=== PATIENT | female | born 1965 | race Caucasian/White ===

== ENCOUNTER 2018-06-09 00:57 | Outpatient (CLI) | payer BC, SELFPAY ==
--- NOTE | 2018-06-09 07:45 | DI.MAMMO_ITS ---
SYMPTOMS/DIAGNOSIS: SCREENING, Z12.31 MAMMOGRAM: Mammograms were interpreted according to the usual protocol including computer analysis with CAD system, tomosynthesis and C view imaging. The breast tissue is heterogeneously radiodense which lowers the sensitivity of the study. There is no dominant mass. There are no suspicious calcifications and there has been no significant interval change when compared with prior images. SUMMARY: No evidence of malignancy, Category I, yearly screening mammography is recommended. Breast density Category C. MQSA ASSESSMENT OF FINDINGS: Negative. Category 1. Patient will receive a letter notifying them of these results. Bi-RADS category C. The breasts are heterogeneously dense, which may obscure small masses.
[2018-06-09 09:36] LABS: Cholesterol 173 mg/dL (50-200); Glucose 83 mg/dL (70-100); HDL Cholesterol 84 mg/dL (40-60); LDL CHOLESTEROL 78 mg/dL (<100); Triglyceride 50 mg/dL (30-150)
== END 2018-06-09 01:17 ==
PROVIDERS: PCP Emergency Medicine; Visit Provider Nurse Practitioner Women's Health
DX: Z12.31 Encounter for screening mammogram for malignant neoplasm of breast (principal); Z13.228 Encounter for screening for other metabolic disorders; Z13.1 Encounter for screening for diabetes mellitus; Z13.220 Encounter for screening for lipoid disorders; Z01.419 Encounter for gynecological examination (general) (routine) without abnormal findings
CPT/HCPCS: 36415; 77063; 77067; 80061; 82947; 83721

== ENCOUNTER 2019-06-15 02:14 | Outpatient (CLI) | payer BC, SELFPAY ==
--- NOTE | 2019-06-15 12:05 | DI.MAMMO_ITS ---
EXAM: MAMMO SCREENING CLINICAL HISTORY: SCREENING Z12.31 TECHNIQUE: Mammograms were interpreted according to the usual protocol including computer analysis w [employer] CAD system, tomosynthesis and C-view imaging. COMPARISON: FINDINGS: The breasts are heterogeneously dense. No dominant mass or clumped microcalcification is identified in either breast. Current examination is compared with previous examinations including May 2018 and there has been no gross interval change in appearance in comparison with the previous studies. IMPRESSION: Conclusion no specific evidence of malignancy at this time. Routine screening examinations are sugges lon at yearly intervals due to the family history of breast carcinoma. Category 1 breast density category C
== END 2019-06-15 02:34 ==
PROVIDERS: PCP Emergency Medicine; Visit Provider Nurse Practitioner Women's Health
DX: Z12.31 Encounter for screening mammogram for malignant neoplasm of breast (principal); Z80.3 Family history of malignant neoplasm of breast
CPT/HCPCS: 77063; 77067

== ENCOUNTER 2020-08-06 01:17 | Outpatient (CLI) | payer BC, SELFPAY ==
--- NOTE | 2020-08-06 12:36 | DI.MAMMO_ITS ---
EXAM: MAMMO SCREENING CLINICAL HISTORY: SCREENING, Z12.31 TECHNIQUE: Mammograms were interpreted according to the usual protocol including computer analysis w [employer] CAD system, tomosynthesis and C-view imaging. COMPARISON: 2013 through 2019 FINDINGS: The breasts are composed of heterogeneously dense fibroglandular densities, Breast Density category C . No suspicious masses or suspicious microcalcifications are seen. No skin thickening or abnormal axillary lymph nodes are seen. There has been no significant change from prior exams. IMPRESSION: BI-RADS Category 1, Negative mammogram. Yearly screening mammography is recommended. Breast Density Category C, heterogeneously Dense. The mammogram demonstrates the patient's breast tissue is dense. Dense breast tissue is very common a nd is not abnormal but dense breast tissue can make it harder to find cancer on a mammogram. Also, de nse breast tissue may increase breast cancer risk. This information about the result of the mammogram report was provided to the patient to raise their awareness. Use this report when you speak with the patient about their risks for breast cancer, which includes their family history. At that time, you may recommend additional screening tests (Ultrasound or MRI) as they might be useful based on their r isk. A negative radiographic report should not delay biopsy if a dominant or clinically suspicious mass is present. Up to ten percent of cancers are not identified on mammography. A negative report may reinforce clinical impression. Adenosis and dense breasts may obscure an underlying neoplasm. False positive reports average 6 to 10%.
== END 2020-08-06 01:18 ==
LOC: DI 01:17
PROVIDERS: PCP Nurse Practitioner Family; Visit Provider Obstetrics & Gynecology
DX: Z12.31 Encounter for screening mammogram for malignant neoplasm of breast (principal)
CPT/HCPCS: 77063; 77067

== ENCOUNTER 2021-08-26 00:21 | Outpatient (CLI) | payer BC, SELFPAY ==
--- NOTE | 2021-08-26 17:00 | DI.MAMMO_ITS ---
Exam(s) MAMMO SCREENING EXAM: MAMMO SCREENING CLINICAL HISTORY: SCREENING, Z12.31; FAMILY H/O MALIGNANT NEOPLASM OF BREAST, Z80.3. TECHNIQUE: Bilateral full field digital CC and MLO mammographic images were obtained with 3D tomosyn thesis and utilizing computer aided detection (CAD). COMPARISON: Prior mammograms were reviewed, the most recent being July 2020. FINDINGS: Fibroglandular tissue is moderately dense, this somewhat decreasing the sensitivity mammogram for fin ding in underlying lesions. There are no new significant radiographic findings in left breast. In the upper outer quadrant right breast there is an asymmetric density evident measuring approximate ly 8 x 7 millimeters and located approximately 6 cm in from the nipple on the MLO and CC views. There are no malignant-appearing microcalcification groups is region or elsewhere in either breast. There is no significant architectural distortion nor skin thickening-retraction. IMPRESSION: Dense bilateral fibroglandular tissue. No obvious radiographic evidence of malignancy in left breast . Asymmetric density-possible nodule in the upper outer quadrant of the right breast. Spot compression view and ultrasound recommended. BI-RADS Category 0 - Assessment Incomplete: Need additional imaging evaluation Breast Density - Category C - Heterogeneously dense Breast density Category C or D implies that the patient has dense breast tissue. Dense breast tissue can make it harder to find cancer on a mammogram. Dense breast tissue is also associated with an incr eased risk of breast cancer. This information about the result of the mammogram report was provided to the patient to raise their awareness. Use this report when you speak with the patient about their risks for breast cancer, which includes their family history. At that time, you may recommend additional screening tests (Ultrasoun d or MRI) as these tests may add significant information. A negative radiographic report should not delay biopsy if a dominant or clinically suspicious mass is present. Up to ten percent of cancers are not identified on mammography. A negative report may reinforce clinical impression. Adenosis and dense breasts may obscure an underlying neoplasm. False positive reports average 6 to 10%. Patient will receive a letter notifying them of these results.
== END 2021-08-26 00:41 ==
PROVIDERS: PCP Nurse Practitioner Family; Visit Provider Nurse Practitioner Women's Health
DX: Z12.31 Encounter for screening mammogram for malignant neoplasm of breast (principal); R92.8 Other abnormal and inconclusive findings on diagnostic imaging of breast
CPT/HCPCS: 77063; 77067

== ENCOUNTER 2021-09-10 01:55 | Outpatient (CLI) | payer BC, SELFPAY ==
--- NOTE | 2021-09-10 13:30 | DI.MAMMO_ITS ---
Exam(s) MG MAMMO SCREEN CALL BACK UNI US BREAST RT COMPLETE EXAM: US BREAST RT COMPLETE CLINICAL HISTORY: ASYMMETRIC DENSITY 8 X 7 MM 6 CM FROM NIPPLE RT BREAST TECHNIQUE: Ultrasound performed using standard protocol. COMPARISON: No exams were available for comparison FINDINGS: Additional mammographic views of the right breast and right breast ultrasound are interpreted in conj unction. These examinations were obtained to evaluate an area of asymmetric density of the right hannah ast seen on recent mammogram. Additional mammographic views fail to show a discrete mass. Breast ul trasound shows number of small hypoechoic well-circumscribed nodules of the breast, the largest about 6 millimeters in diameter in the 10 o'clock position in the breast. No significant internal vascula rity. Findings are consistent with benign disease. Malignancy not absolutely excluded and a follow- up unilateral right breast mammogram and right breast ultrasound are requested in 6 months. IMPRESSION: No specific evidence of malignancy. Follow-up unilateral right breast mammogram and right breast ult rasound requested in 6 months as described above. BI-RADS Cat 3 - 6 month - Probably Benign Finding: Recommend follow-up imaging in 6 months Breast Density - Category C - Heterogeneously dense DATA REPOSITORY:
== END 2021-09-10 02:15 ==
PROVIDERS: PCP Nurse Practitioner Family; Visit Provider Nurse Practitioner Women's Health
DX: R92.8 Other abnormal and inconclusive findings on diagnostic imaging of breast (principal)
CPT/HCPCS: 76642; 77063; 77067

== ENCOUNTER → 2022-03-17 01:12 | Outpatient (CLI) | payer BC, SELFPAY ==
--- NOTE | 2022-03-17 | DI.US_ITS ---
Exam(s) MG MAMMO DIAGNOSTIC UNI US BREAST RT LIMITED EXAM: MG MAMMO DIAGNOSTIC UNI-RIGHT AND COMPLETE RIGHT BREAST ULTRASOUND CLINICAL HISTORY: 6-MO F/U RT BREAST MAMMO. TECHNIQUE: Both CC and MLO views of the right breast were performed as well as additional CC and MLO spot mammographic images were obtained with 3D tomosynthesis technique and utilizing computer aided detection (CAD). Complete right breast ultrasound was performed including all 4 quadrants well as the axilla. COMPARISON: Prior mammograms were reviewed, the most recent being August 2021. Prior AUGUST 2021 ultr asound was also reviewed.. FINDINGS: DIAGNOSTIC RIGHT BREAST MAMMOGRAM: Fibroglandular tissue pattern is again noted be moderately dense, this somewhat decreasing the sensit ivity mammogram for finding hidden underlying lesions. On the right CC view there is a suggestion of a nodule laterally. This, however, the dissipates on a dditional spot compression view. Asymmetric densities seen on the mammogram in the right breast appe ar less concerning on the 3 additional spot mammographic views performed today. There are no new spi culated masses nor malignant-appearing microcalcification groups in the right breast and there is no new architectural distortion nor skin thickening-retraction. We proceeded with ultrasound. COMPLETE RIGHT BREAST ULTRASOUND: At the 12 o'clock position there is a 5 x 3 millimeter wider than taller unchanged finding which is u nchanged from the prior August 2021 study and is probably a hemorrhagic microcyst. The previously present finding at 4 o'clock position is again noted and has appearance of a 5 x 3 mil limeter microcyst. At the 6 o'clock position there is a 6 x 4 millimeter microcyst again noted. At the 9 o'clock position there is a wider than taller slightly lobulated 6 x 3 millimeter benign-miguelito earing nodule again noted, this correspond to what was previously described at 10 o'clock position. Scanning of the ipsilateral-right axilla is negative for significant adenopathy. IMPRESSION: 1. No radiographic evidence of malignancy in the right breast. The right breast tissue is again note d be moderately dense. 2. Stable appearance of the previously described multiple benign-appearing right breast findings on u ltrasound. These are all hidden subjacent to her moderately dense fibroglandular tissue on mammograp hy. Appropriate follow-up, as discussed by myself with the patient today, is to repeat the ultrasound exa mination at time for next yearly mammogram which would be in August 2022. Indeed at that time I would recommend ultrasound of BOTH breasts, given the density of her fibroglandular breast tissue plus th e fact that the right breast ultrasound findings are known to be hidden subjacent to this dense fibro glandular tissue. The patient was informed of the findings and follow-up recommendations prior to leaving the [facility] t today. BI-RADS Category 3 - 6 month - Probably Benign Finding: Recommend follow-up mammography in 6 months Breast Density - Category C - Heterogeneously dense Breast density Category C or D implies that the patient has dense breast tissue. Dense breast tissue can make it harder to find cancer on a mammogram. Dense breast tissue is also associated with an incr eased risk of breast cancer. This information about the result of the mammogram report was provided to the patient to raise their awareness. Use this report when you speak with the patient about their risks for breast cancer, which includes their family history. At that time, you may recommend additional screening tests (Ultrasoun d or MRI) as these tests may add significant information. A negative radiographic report should not delay biopsy if a dominant or clinically suspicious mass is present. Up to ten percent of cancers are not identified on mammography. A negative report may reinforce clinical impression. Adenosis and dense breasts may obscure an underlying neoplasm. False positive reports average 6 to 10%. Patient will receive a letter notifying them of these results.
== END ==
PROVIDERS: PCP Nurse Practitioner Family; Visit Provider Nurse Practitioner Women's Health
DX: R92.8 Other abnormal and inconclusive findings on diagnostic imaging of breast (principal)
CPT/HCPCS: 76642; 77061; 77065; G0279

== ENCOUNTER 2022-08-03 20:57 | Emergency (ER) | payer BC, SELFPAY ==
[2022-08-03 21:03] VITALS: BP 131/96; PULSE 71; RESP 22; TEMP 36.5; O2SAT 97
--- NOTE | 2022-08-03 21:08 | ED.GENADUL_ITS ---
Discharge Plan Disposition Patient Disposition: Home Condition: Good Discharge Details Clinical Impression: Face lacerations, Laceration of lip, Broken teeth, Loose, teeth Primary Care Provider: Galina Lowe ED Provider: Rebecca Noyola Home Meds and New Rx's Prescriptions: No Action dexamethasone 0.5 mg/5 mL solution 0.5 mg PO QID Rx Instructions: Advised to Dab on face QID. Discharge Instructions Instructions: Acute Dental Trauma (ED), Facial Laceration (ED) Additional Instructions: As we discussed, your imaging is reassuring with no evidence of significant fracture. However, I am concerned about your slightly loose upper teeth. Ple ase call dentist tomorrow to schedule follow-up. Please try to avoid any biting with your front teeth and eat soft foods. You may use Tylenol and ibuprofen as needed for discomfort. The outer laceration was closed with adhesive. Please do not pick or pull at this. Allow it to come off naturally. Do not apply any ointments over this as it may cause it to breakdown prematurely. Please monitor your lacerations for signs of infection including redness, warmth, drainage, increased pain, fever/ chills. If you develop these or other new/worsening symptom please seek care urgently once again. Regard to the inner laceration, please rinse with salt water to help prevent infection. This did not come through to the outer lip and does not require closure at this time. Again, please monitor for signs of infection. Please follow-up with your primary care in 1 week for reevaluation of your la cerations Referrals: Galina Lowe, MANUFACTURING DEVELOPMENT ENGINEER [Primary Care Provider] - Discharge Data Discharge Date/Time-TO BE ENTERED AT DEPARTURE: 08/03/22 23:07 Medical Decision Making Patient is a 57-year-old female, accompanied by , with chief complaint of facial trauma. She reports that prior to arrival she was drinking with some friends when she fell forward and struck a metal bar supporting a char that th ey were under. She denies any headache or loss of consciousness. Suffered laceration extending from the left naris into the left upper lip. Also had laceration more internally in the left upper lip. Fracture of the left front tooth. She denies radiation of pain or other injury at the time of the incident. has been with her, no abnormal movments, speech, no LOC, no N/V, visual changes. On exam, patient appears nontoxic. She does appear slightly inebriated. She is answering quesitons appropriately. She has a laceration over the left upper lip that is not a through and through. Appears fairly supeerficial. Surrounding this, the patient has abrasions and some swelling. She also has a fractured front tooth. No pain with this, nerve is not exposed. She lost the piece of broken piece. She has small abrasion to the upper lip, centrally and inferiorly. Again, not a through and through, appears superficial and like something that will heal natrually. She is able to bite/break tongue depressor on both sides. No other loose/painful teeth. No evidence of maxillary fracture. No midline neck pain, full ROM, no step off or deformity. Neuro exam is intact. Patient and I discussed her wounds. I am concerned, particularly as she has had some ETOH, that she may have distracting injury and feel that imaging is appropriate. Discussed with patient who is in agreement. Also spoke with patient privately, she assures that she is safe at home and reiterates that this was a trip/fall when out with friends FINDINGS: Orbital cavities: Orbits are normal. Globes are unremarkable. Bones/joints: No acute fracture. Paranasal sinuses: Normal. No air-fluid levels. Soft tissues:? 2 mm fragment versus radiopaque foreign body over the left mandibular lateral incisor tooth IMPRESSION: Osseous fragment versus radiopaque foreign body overlying the left mandibular lateral incisor tooth. Clinical correlation recommended Discussed with patient. the small fragment of tooth was able to be found and is the fragment noted. She, her and I discussed options for her laceration. It is fairly linear and superficial. Wound edges come together easily and ammend themselves to adhesive closure. We discussed risks/benefits, alternatives and expected procedural steps. She voices understanding and wishes to proceed. j Wound was cared to using standard, sterile technique. Copiously irrigated and explored to base in bloodless field. Small, folded, superficial skin piece removed. Wound edges reappoximated well without tension, thin layer of adhesive applied. Also cleansed the inner laceration that does not require closure. Discussed wound care in depth, both for the exterior laceration as well as her lip wound and abrasions. She has a dentist and will f/u tomorrow. Return pre cautions discussed. We discussed ETOH. She will deepika nthe care of her . Tetanus updated. All of her questions and concerns were addressed, she is in agreement with this plan. HPI General Date/Time Provider Initiated Documentation: 08/03/22 21:08 . Limitations to Documentation: no limitations . Information obtained by: patient, family and RN notes reviewed . History of Present Illness 57 year old F presents to the emergency department with the chief complaint of facial trauma, described as moderate, Quality is described as aching, and is localized to the face and mouth. Patient reports no radiation. Patient started experiencing this minute(s) and it has been constant. Immobilization improves symptom(s), Movement worsens symptoms . Patient notes no other symptoms.. Patient did receive the following treatments prior to arrival, none Related Data Home Medications Medication Instructions Recorded Confirmed dexamethasone 0.5 mg/5 mL oral 0.5 mg PO QID 08/06/22 08/07/22 solution Allergies Allergy/AdvReac Type Severity Reaction Status Date / Time No Known Allergies Allergy Verified 08/06/22 11:14 General Stated Complaint: Laceration ZEUS: 4 Review of Systems Constitutional Constitutional: Reports as per HPI, Denies chills, Denies fatigue, Denies fever(s), Denies headache(s) and Denies weakness Eyes Eyes: Reports as per HPI and Denies change in vision ENT Ears, Nose, Mouth, and Throat: Denies headache(s) Cardiovascular Cardiovascular: Reports as per HPI and Denies chest pain Respiratory Respiratory: Reports as per HPI and Denies pain on inspiration Gastrointestinal Gastrointestinal: Reports as per HPI, Denies nausea and Denies vomiting Musculoskeletal Musculoskeletal: Reports as per HPI Integumentary/Breasts Skin/Breast: Reports as per HPI Neurologic Neurologic: Reports as per HPI, Denies headache(s), Denies localized weakness and Denies weakness Endocrine Endocrine: Denies fatigue PFSH All Active Problems (Updated 08/03/22 @ 22:41 by AISHWARYA Solorzano) Face lacerations (Acute) Laceration of lip (Acute) Broken teeth (Acute) Loose, teeth (Acute) 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 Father Personal history of malignant neoplasm bladder Sister No problems noted. Brother Heart disease Grandfather No problems noted. Grandfather Heart disease Grandmother No problems noted. Grandmother No problems noted. 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 linear laceration. This is not a through and through. Superficial wound. Surrounding tissue is swollen, some redness. Small abrasion extends laterarlly away from this. Mouth: oral mucosae normal, lip normal and tongue normal Throat: posterior oropharynx normal Eyes General: appearance normal, both eyes and all related structures Visual Bangura: normal visual bangura by confrontation Alignment and Position: alignment normal Periorbital: periorbital findings normal Eyelids: eyelids normal Conjunctivae: conjunctivae normal Pupils: PERRL EOM: EOM intact bilaterally Neck Neck: normal visual inspection, full ROM, no lymphadenopathy, no meningeal signs, trachea midline and supple Chest Chest: normal inspection of the chest, normal palpation of entire chest wall, no crepitus and no localized rib tenderness Resp Effort & Inspection: normal respiratory effort, able to speak in complete sentences and no respiratory distress Auscultation: clear to auscultation bilaterally, no rales, no rhonchi and no wheezes Cardio Rate: regular rate Rhythm: regular rhythm Heart Sounds: S1 normal and S2 normal GI Inspection: normal to inspection, no abdominal wall ecchymosis, no edema and non-distended Palpation: soft, no hepatosplenomegaly, not firm, no guarding, no pulsatile masses, not rigid and nontender Auscultation: normal bowel sounds Back/Spine/Pelvis Back: no CVA tenderness Cervical Spine: normal cervical lordosis and cervical ROM normal Thoracic/Lumbar Spine: thoracic and lumbar spine normal to inspection, thoraco-lumbar ROM normal, No thoraco-lumbar ROM limited, No thoraco-lumbar spasm and No thoracic spinal tenderness Pelvis: no pain with anterior-posterior compression and no pain with lateral compression Skin General skin exam: no rashes or lesions noted Lesions: no lesions Rashes: no rashes Trauma: no lacerations or abrasions Wounds: no wounds Neuro General: patient alert, patient awake, patient oriented x3, gait normal, tone normal and moves all extremities Cranial Nerves: CN's II-XI intact bilaterally Cognition: normal cognition Speech: speech normal Gait: normal gait Motor: muscle tone normal throughout and strength 5/5 throughout Sensory Exam: no sensory deficits noted (no saddle paresthesias) Extrem General: normal to inspection, full ROM, capillary refill normal, no pedal edema and no calf tenderness Psych Appearance: grossly normal and well kempt Mental Status: mental status grossly normal Speech and Movement: speech and movement normal Course Vital Signs Vital signs: Vital Signs Temperature 36.5 C 08/03/22 21:03 Pulse 71 08/03/22 21:03 Respiratory Rate 22 08/03/22 21:03 Blood Pressure 131/96 H 08/03/22 21:03 Pulse Oximetry 97 08/03/22 21:03 Temperature 36.5 C 08/03/22 21:03 Temperature Source Oral 08/03/22 21:03 Pulse 71 08/03/22 21:03 Respiratory Rate 22 08/03/22 21:03 Blood Pressure 131/96 H 08/03/22 21:03 Blood Pressure Position Sitting 08/03/22 21:03 Pulse Oximetry 97 08/03/22 21:03
--- NOTE | 2022-08-03 21:15 | DI.CT_ITS ---
Exam(s) CT FACIAL WO EXAM: CT FACIAL WO CLINICAL HISTORY: fell on face, upper lip lac, fx tooth. TECHNIQUE: Imaging Protocol: Axial computed tomography images with coronal and sagittal reformatted images were created and reviewed COMPARISON: No exams were available for comparison FINDINGS: CT Face: Facial Bones: No definite fracture is noted in facial bones. Sinuses and Mastoids: Unremarkable. Globes, extraocular muscles, optic nerves and retrobulbar fat: Normal. Upper aerodigestive tract: Normal. Mandible and bilateral temporomandibular joints: Normal. Soft tissues: There is a 2 mm density adjacent to the left mandibular lateral incisor tooth. This ma y represent a fracture fragment versus of radiopaque foreign body. IMPRESSION: 2 mm density adjacent to the left mandibular lateral incisor which may represent an osseous fragment versus a radiopaque foreign body. Please correlate clinically. RADIATION DOSE DELIVERED: 356.82mGy.cm Total DLP 356.82mGy.cm Total DLP DATA REPOSITORY: All CT scans at this facility are submitted to the National Radiology Data Registry (NRDR) Dose Index Registry (DIR) with the [employer] (A[employer]). RADIATION OPTIMIZATION: All CT scans at this facility use at least one of these dose optimization te chniques: automated exposure control; mA and/or kV adjustment per patient size (includes targeted exa ms where dose is matched to clinical indication); or iterative reconstruction.
[2022-08-03] MEDS: Acetaminophen 325 MG TAB 650 MG PO (21:31)
--- NOTE | 2022-08-03 22:10 | DI.VRAD_ITS ---
PROCEDURE INFORMATION: Exam: CT Maxillofacial Without Contrast Exam date and time: 08/03/2022 9:39 PM Age: 57 years old Clinical indication: Other: Fell on face, upper lip lac, FX tooth TECHNIQUE: Imaging protocol: Computed tomography of the face without contrast. Radiation optimization: All CT scans at this facility use at least one of these dose optimization techniques: automated exposure control; mA and/or kV adjustment per patient size (includes targeted exams where dose is matched to clinical indication); or iterative reconstruction. COMPARISON: No relevant prior studies available. FINDINGS: Orbital cavities: Orbits are normal. Globes are unremarkable. Bones/joints: No acute fracture. Paranasal sinuses: Normal. No air-fluid levels. Soft tissues: 2 mm fragment versus radiopaque foreign body over the left mandibular lateral incisor tooth IMPRESSION: Osseous fragment versus radiopaque foreign body overlying the left mandibular lateral incisor tooth. Clinical correlation recommended No acute orbital or mandibular fracture Dictated and Authenticated by: Sebastian Sanon MD. Ordering:JAQUELINE Fernandez MD
[2022-08-03 23:06] VITALS: BP 128/80; PULSE 70; RESP 16; O2SAT 98
== END 2022-08-03 23:07 | disposition home or self-care (01) ==
PROVIDERS: Emergency Provider Physician Assistant; PCP Nurse Practitioner Family
DX: S02.5XXA Fracture of tooth (traumatic), initial encounter for closed fracture (principal); S01.511A Laceration without foreign body of lip, initial encounter; J45.909 Unspecified asthma, uncomplicated; Z23 Encounter for immunization; W19.XXXA Unspecified fall, initial encounter; W22.09XA Striking against other stationary object, initial encounter
CPT/HCPCS: 90471; 99284; 70486; 99282

== ENCOUNTER 2022-09-15 01:26 | Outpatient (CLI) | payer BC, SELFPAY ==
--- NOTE | 2022-09-15 14:30 | DI.US_ITS ---
Exam(s) US BREAST RT COMPLETE MG MAMMO DIAGNOSTIC BI EXAM: MG MAMMO DIAGNOSTIC BI CLINICAL HISTORY: RT BREAST ASYMMETRY, ABNL AND INCONCLUSIVE FINDINGS OF DI OF BREAST, R92.8. COMPARISON: MG MG MAMMO SCREENING from 08/26/2021 MG MG MAMMO SCREEN CALL BACK UNI from 09/10/2021 US US BREAST RT LIMITED from 03/17/2022 US US BREAST RT COMPLETE from 09/15/2022 TECHNIQUE: Craniocaudal and mediolateral oblique Full Field Digital Mammography views of both breast s with Computer Aided Diagnosis followed by Tomosynthesis and right breast ultrasound. FINDINGS: Mammography/Tomosynthesis: Masses/Architectural Distortion: None seen. Microcalcifications: No suspicious pleomorphic-type are seen. Skin Thickening/Nipple Retraction: None. Right breast US: Echotexture: Normal appearance of the glandular tissue. Shadowing: No suspicious foci. Cyst: 3 millimeters cyst 12 o'clock position 1 cm from the nipple. The prior exam showed several add itional cysts which are not seen on the current exam. Solid lesions: None seen. Ductal dilation: None. IMPRESSION: 1. No evidence of malignancy is noted. 2. Unless there is more urgent need, follow-up screening mammography is recommended, as per [place] [employer] guidelines. BI-RADS Category 2 - Benign Findings Breast Density - Category C - Heterogeneously dense Breast density category C or D implies that the patient has dense breast tissue. Dense breast tissue is very common and is not abnormal but dense breast tissue can make it harder to find cancer on a ma mmogram. Also, dense breast tissue may increase their breast cancer risk. This information about the result of the mammogram report was provided to the patient to raise their awareness. Use this report when you speak with the patient about their risks for breast cancer, which includes their family hist ory. At that time, you may recommend for more screening tests (Ultrasound or MRI) as they might be us eful based on their risk. A negative radiographic report should not delay biopsy if a dominant or clinically suspicious mass is present. Up to ten percent of cancers are not identified on mammography. A negative report may reinforce clinical impression. Adenosis and dense breasts may obscure an underlying neoplasm. False positive reports average 6 to 10%. Patient will receive a letter notifying them of these results.
== END 2022-09-15 01:46 ==
LOC: DI 01:26
PROVIDERS: PCP Nurse Practitioner Family; Visit Provider Nurse Practitioner Women's Health
DX: R92.8 Other abnormal and inconclusive findings on diagnostic imaging of breast (principal); N60.01 Solitary cyst of right breast
CPT/HCPCS: 76642; 77062; 77066; G0279

== ENCOUNTER → 2023-10-05 03:00 | Outpatient (CLI) | payer BC, SELFPAY ==
--- NOTE | 2023-10-05 | DI.MAMMO_ITS ---
Exam(s) MAMMO SCREENING EXAM: MAMMO SCREENING CLINICAL HISTORY: Z12.31 Screening mammogram for malignant neoplasm of breast. TECHNIQUE: Bilateral full field digital CC and MLO mammographic images were obtained with 3D tomosyn thesis and utilizing computer aided detection (CAD). COMPARISON: Prior mammograms were reviewed. FINDINGS: The fibroglandular tissue pattern is again noted be moderately dense, and indeed there are numerous f indings in the breasts seen on prior ultrasound examinations which have been known to be hidden subja cent to her dense fibroglandular tissue on 3D mammography. Asymmetric density in the left breast seen on the MLO view appears relatively stable. There are no obvious new spiculated masses nor malignant appearing microcalcification groups. A few benign-appearing microcalcifications in the right breast are again noted. There is no significant architectural distortion nor skin thickening-retraction. IMPRESSION: Moderately dense fibroglandular tissue. No obvious radiographic evidence of malignancy. Given the density of this patient's fibroglandular tissue and findings on prior ultrasound examinatio ns which are known to be hidden subjacent to her dense fibroglandular tissue, I recommend repeat bila teral breast ultrasound exam at this time. BI-RADS Category 0 - Assessment Incomplete: Need additional imaging evaluation Breast Density - Category C - Heterogeneously dense Breast density Category C or D implies that the patient has dense breast tissue. Dense breast tissue can make it harder to find cancer on a mammogram. Dense breast tissue is also associated with an incr eased risk of breast cancer. This information about the result of the mammogram report was provided to the patient to raise their awareness. Use this report when you speak with the patient about their risks for breast cancer, which includes their family history. At that time, you may recommend additional screening tests (Ultrasoun d or MRI) as these tests may add significant information. A negative radiographic report should not delay biopsy if a dominant or clinically suspicious mass is present. Up to ten percent of cancers are not identified on mammography. A negative report may reinforce clinical impression. Adenosis and dense breasts may obscure an underlying neoplasm. False positive reports average 6 to 10%. Patient will receive a letter notifying them of these results.
== END ==
PROVIDERS: PCP Nurse Practitioner Family; Visit Provider Nurse Practitioner Women's Health
DX: Z12.31 Encounter for screening mammogram for malignant neoplasm of breast (principal); R92.323 Mammographic fibroglandular density, bilateral breasts
CPT/HCPCS: 77063; 77067

== ENCOUNTER 2024-02-19 22:06 | Emergency (ER) | payer BC, SELFPAY ==
[2024-02-19] VITALS (13 sets, daily range): BP systolic 91–110; BP diastolic 41–70; PULSE 77–89; RESP 12–24; TEMP 36.7; O2SAT 96
--- NOTE | 2024-02-19 22:06 | ED.GENADUL_ITS ---
Discharge Plan Disposition Patient Disposition: Home Condition: Good Discharge Details Clinical Impression: Drop attack, Closed fracture of ulna, styloid process, Closed fracture of distal end of left radius Primary Care Provider: Galina Lowe ED Provider: Anuel Hollingsworth Meds and New Rx's Prescriptions: New levetiracetam 500 mg tablet 500 mg PO BID Qty: 60 0RF Continued dexamethasone 0.5 mg/5 mL solution 0.5 mg PO QID Rx Instructions: Advised to Dab on face QID. Discharge Instructions Instructions: Driving Restrictions, Forearm and Wrist Fractures ED, Seizures, Adult ED Additional Instructions: You were seen for 2 episodes of a drop attack which you have had previously. You did sustain a left wrist fracture and will need to be seen in follow up with orthopedics. Leave the splint in place and do not get wet. Keep your arm elevated and use ice on and off to help with swelling and pain. You may take acetaminophen or ibuprofen as needed for pain as well. Did speak with [facility] neurology. You will need to follow-up with them. We will start you on antiepileptic and would like you to abstain from driving, swimming, heights, other activities that may result in significant injury or harm if you have another attack. They have requested a case advocate to be done as part of the workup. I have placed an order for this. You should follow-up with your primary care as well. Return to ED for any significant neurologic change, chest pain, shortness of breath, worsening arm pain or weakness and numbness involving the fingers, any other concerns. Referrals: [facility] [Provider Group] [facility] [Outside] (Neurology Clinic) Galina Lowe NP [Primary Care Provider] - Discharge Orders Other Ambulatory Orders: 14 Day Assisted Sales Representative (Routine) Timeframe: 10 Day Facility: [facility] - Location: Respiratory Therapy Ordered By: Anuel Hollingsworth [facility] General Mode of arrival: EMS . Date/Time Provider Initiated Documentation: 02/19/24 22:18 . Limitations to Documentation: no limitations . Information obtained by: patient, family and RN notes reviewed . HPI Narrative: Patient presents to ED by ambulance after 2 unresponsive events. 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 First 1 was about 17 years ago. Patient reports a full workup at [facility] with a diagnosis of seizures made. She was on medication for about 3 years. Subsequently has been off them. Had another event 5 years ago. This evening had an initial event while out resulting in her dropping and striking the back of her head. She seemed a little dazed and out of it. She was brought home where she subsequently had a second event resulting in both urinary and fecal incontinence. She arrives here awake and alert with complaint of left wrist pain. Had been complaining of head pain but not currently. Denies any neck pain or back pain. Has not been ill recently. She is not on medications currently other than iron for anemia. She did have more alcohol tonight than she typically does. Otherwise there has been nothing out of the ordinary. Related Data Home Medications ?Medication ?Instructions ?Recorded ?Confirmed dexamethasone 0.5 mg/5 mL oral 0.5 mg PO QID 08/06/22 02/19/24 solution levetiracetam 500 mg tablet 500 mg PO BID #60 tabs 02/20/24 Previous Rx's ?Medication ?Instructions ?Recorded levetiracetam 500 mg tablet 500 mg PO BID #60 tabs 02/20/24 Allergies Allergy/AdvReac Type Severity Reaction Status Date / Time No Known Allergies Allergy Verified 02/19/24 22:16 General ZEUS: 4 Review of Systems Narrative: Per HPI Exam Narrative Exam Narrative: Const: WDWN female in NAD. VS per triage. HEENT: NC/AT. Normal facial exam. Neck: Supple. Trachea midline. Lungs: Normal respiratory effort. Lungs are clear. Cor: RRR without murmur. Good radial pulses. GI: Soft/ND Neuro: A+O x 3. Normal speech, mentation. Cranial nerves II - XII grossly intact. No gross motor or sensory deficit. Ext: No C/C/E. Swelling and tenderness over the dorsum of the left wrist with limited ROM. Skin: No lacerations. 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 She has not had an event in 5 years. She had 2 events tonight with a second 1 resulting in incontinence of both urine and feces. She did have a head strike and initially was complaining of head pain but not currently. Will obtain head CT. She is on a monitor. Will obtain EKG and labs. Complaining of left wrist pain with swelling and tenderness and decreased range of motion. Will obtain left wrist x-ray. CT head preliminary radiology read negative for acute process. Left wrist x-ray per my read with a nondisplaced distal radius fracture and small avulsion fracture of the ulnar styloid. Patient was placed in a volar splint. She was given IV acetaminophen for pain. Laboratory studies are unremarkable. Potassium just a little low at 3.4. Alcohol level 135. Call placed to [facility] to request a neurology consult given her previous relationship with neurology there and 2 episodes of seizures tonight. Discussed with neurology. Recommendations to load with IV Keppra and begin on oral Keppra until able to follow-up with neurology they are. Requesting outpatient Zio patch for cardiac monitoring despite previous workup. Seizure precautions in regards to driving, swimming, etc. Will need follow-up with orthopedics which can happen up here. Will also have her follow-up with primary care. Return precautions provided. Imaging Data Radiologic Study: Attestation: I personally reviewed and interpreted this imaging study as follows: Imaging: X-Ray My impression: Nondisplaced distal radius fracture, small chip avulsion fracture ulnar styloid Lab Data Lab results reviewed: Yes I reviewed the patient's lab results. ECG Data Attestation: I personally reviewed and interpreted this ECG (s) as follows: Interpretation: Normal PFSH All Active Problems (Updated 02/20/24 @ 00:19 by Anuel Hollingsworth MD) Closed fracture of distal end of left radius (Acute) Closed fracture of ulna, styloid process (Acute) Drop attack (Acute) Seizure (Acute) Medical History (Updated 02/20/24 @ 00:19 by Anuel Hollingsworth MD) Asthma Seizure Surgical History S/P ovarian cystectomy Colonoscopy - IV Sedation (08/14/16) Family History Mother No problems noted. Father Personal history of malignant neoplasm bladder Sister No problems noted. Brother Heart disease Grandfather No problems noted. Grandfather Heart disease Grandmother No problems noted. Grandmother No problems noted. 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
--- OUTSIDE RECORDS SUMMARY | 2024-02-19 22:11 | XMS_ITS | Clinical Summary ---
Author Organization [facility] Address [facility] [place] [address] Care Team Providers Care Direct Marketing Manager Name Role Phone JuniorGalina mtz FRANNY Primary Care Provider Allergies No known active allergies Medications Medication Sig Dispensed Refills Start Date End Date Status ferrous gluconate (Ferate) 324 mg (37.5 mg iron) tablet Take 324 mg by mouth daily. Active multivitamin (THERAGRAN) Tablet Take 1 tablet by mouth daily. Active Active Problems No known active problems Encounters Date Type Department Care Team Description 11/23/2023 8:40 AM EDT Office [place] [address] Dayana Zuniga APRN Surgery follow-up 11/23/2023 Travel from Last 3 Months Social History Tobacco Use Types Packs/Day Years Used Date Smoking Tobacco: Never Smokeless Tobacco: Never Sex and Gender Information Value Date Recorded Sex Assigned at Not on file Gender Identity Not on file Sexual Orientation Not on file Last Filed Vital Signs Vital Sign Reading Time Taken Comments Blood Pressure - - Pulse - - Temperature - - Respiratory Rate - - Oxygen Saturation - - Inhaled Oxygen Concentration - - Weight 63.5 kg (140 lb) 08/24/2023 8:46 AM EDT Height 170.2 cm (5' 7) 08/24/2023 8:46 AM EDT Body Mass Index 21.93 08/24/2023 8:46 AM EDT Plan of Treatment Health Maintenance Due Date Last Done Comments CT Colonography 1965 Colonoscopy 1965 Colorectal Cancer Screening 1965 FIT DNA 1965 FIT 1965 Sigmoidoscopy (10 year) with FIT yearly 1965 Sigmoidoscopy 1965 HIV screen 1983 Hepatitis C Screening 1983 Hepatitis B vaccine (0-59 yrs) (1) 1984 Tdap adult 1984 Tetanus vaccine 1984 HPV test 1995 PAP Smear 1995 Breast Cancer Share Decision Needed 2005 Breast Cancer screening 2005 Zoster vaccine (1 of 2) 2015 Advance Directive 2020 Covid-19 Vaccine (1 - season) 2024 Influenza (Flu) vaccine (1 o f 1 - Influenza standard series) 02/13/2024 Care Teams Direct Marketing Manager Relationship Specialty Start Date End Date Mynor FRANNY Mojica [address] [place], [place] [id number] PCP - General Family Medicine 07/11/20
--- OUTSIDE RECORDS SUMMARY | 2024-02-19 22:11 | XMS_ITS | Encounter Summary ---
[facility] [place] [address] Care Team Providers Care Maintenance Of Way Superintendent Name Role Phone Galina Lowe FRANNY Primary Care Provider Encounter Details Date Type Department Care Team (Late st Contact Info) Description 11/23/2023 8:40 AM EDT Office [place] [address] Gricelda Zuniga [facility] [place] [address] Surgery follow-up Social History Tobacco Use Types Packs/Day Years Used Date Smoking Tobacco: Never Smokeless Tobacco: Never Sex and Gender Information Value Date Recorded Sex Assigned at Not on file Gender Identity Not on file Sexual Orientation Not on file documented as of this encounter Patient Instructions * Patient Instructions* Gricelda Zuniga APRN - 11/23/2023 8:40 AM EDT -SCAR MASSAGE TECHNIQUE: to begin 4-6 weeks following surgery What is a scar? When an injury occurs, the body immediately begins to repair itself & the area becomes swollen & sore. Eventually small collagen fibers form, becoming a solid tissue that results in a scar. This scar will continue to change in appearance for 1-2 years. Ideally, a scar is smooth & flat, blending in with the surrounding skin. However, some scars may become highly visible & unattractive due to factors such as your age, scar location & size, nutrition, genetics, or infection. A hypertrophic scar occurs when there is an excess production of collagen tissue that is elevated but remains within the wound boundaries. The scar is tense, red, & can be associated with itching & tenderness. A hypertrophic scar can be ordinary (usually stabilizes in 3 months & may even get smaller and smoother) or keloid. The keloid scar invades nearby tissue that was not part of the original wound, tends to enlarge even after 6 months & does not get softer. Will scar massage make my scars disappear? Nothing can make scars disappear. However, massaging the scar assists the body in breaking down thescar tissue to give it a flatter, softer, appearance. Massage also mobilizes the scar, preventing it from adhering to underlying tissue, tendons, & nerves. You can make the greatest difference in the appearance of the scar if you massage it in the first 3months. What should I use on my scars? You will hear many recommendations. This clinic finds that it is the massage itself that reduces the scar & not necessarily the choice of ointments or creams. We do discourage the use of Vitamin E oil, however, due to studies that have reported scar inflammation & deterioration. How do I massage my scars? Apply the lotion or cream into the scar 3-4 times a day for 8 weeks on new scars, and 3-4 times perday for 3 to 6 months on existing scars. Using your finger, apply pressure to the scar in a crosswise & circular direction, bearing down as hard as tolerated. Remember to protect your scar from the sun, especially in the first 6-12 months, by using a moisturizer with sunblock and wearing a physical barrier (ie: a hat) when possible documented in this encounter Progress Notes * Gricelda Zuniga APRN - 11/23/2023 8:40 AM EDT Plastic Surgery Post Procedure Note Gricelda Zuniga APRN. Reason for visit: F/U status post procedure and suture removal Date of procedure: 11/18/23 Procedure(s): scar revision upper lip (Freed) Complications: None reported HPI: Romy Bhakta is here today for suture removal and follow up post procedure. She reports that she has been doing well since her procedure. Examination: Patient is alert, conversant, comfortable, ambulating Upper lip: Incision: CDI, healing well Sutures in place, removed today No collection, no erythema, no evidence of cellulitis Impression: Romy Bhakta is a 58 y.o. female who was seen today for follow up after the above procedure. Please see the procedure note for details. She is healing well. Plan: Follow up PRN Wear SPF 50+ Start scar massage 1 month post op I, Ngozi Alberts, have performed the documentation for this encounter in the presence of and acting as a scribe for GRICELDA ZUNIGA APRN. I performed the services which were documented by the scribe, and I agree with the accuracy of the documentation in this encounter. GRICELDA ZUNIGA APRN documented in this encounter Plan of Treatment Not on file documented as of this encounter Visit Diagnoses Diagnosis Surgery follow-up Follow-up examination, following unspecified surgery documented in this encounter Care Teams Maintenance Of Way Superintendent Relationship Specialty Start Date End Date Galina Lowe APRN [address] [place] [address] PCP - General Family Medicine 07/11/20 documented as of this encounter
--- OUTSIDE RECORDS SUMMARY | 2024-02-19 22:11 | XMS_ITS | Encounter Summary ---
Author [place] [address] Care Team Providers Care Intranet Developer Name Role Phone Galina Lowe APRN Primary Care Provider Encounter Details Date Type Department Care Team (Latest Contact Info) Description 11/23/2023 Travel Social History Tobacco Use Types Packs/Day Years Used Date Smoking Tobacco: Never Smokeless Tobacco: Never Sex and Gender Information Value Date Recorded Sex Assigned at Not on file Gender Identity Not on file Sexual Orientation Not on file documented as of this encounter Plan of Treatment Not on file documented as of this encounter Visit Diagnoses Not on filedocumented in this encounter Care Teams Intranet Developer Relationship Specialty Start Date End Date Galina Lowe APRN [address] [place], [place] [id number] PCP - General Family Medicine 07/11/20 documented as of this encounter
--- OUTSIDE RECORDS SUMMARY | 2024-02-19 22:11 | XMS_ITS | Encounter Summary ---
Author Organization Formerly [facility] [place] [address] Care Team Providers Care Social Media Intern Name Role Phone Galina Lowe APRN Primary Care Provider Reason for Visit * Reason Comments Follow-up Encounter Details Date Type Department Care Team (Late st Contact Info) Description 08/03/2023 3:15 PM EST Office Visit Dermatology at [address] [phone] Glenroy Henry MD [address] [facility], [facility] [place] [address] Paronychia of finger of left hand Social History Tobacco Use Types Packs/Day Years Used Date Smoking Tobacco: Never Smokeless Tobacco: Never Sex and Gender Information Value Date Recorded Sex Assigned at Not on file Gender Identity Not on file Sexual Orientation Not on file documented as of this encounter Progress Notes * Glenroy Henry MD - 08/03/2023 3:15 PM EST Problem: 1. Chronic paronychia/tinea unguium left fourth finger, status post course of terbinafine 2. 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 4. Normal x-ray left fourth fingernail June 2023 5. Nailbed [place] [facility] [place] no malignancy or fungus Jenny follows up after having her nail bed biopsy by Dr. Prieto. The biopsy came back showing squamous hyperplasia and parakeratosis containing neutrophils without evidence of malignancy or fungus. Dr. Prieto and I both believe that a Kenalog injection is now indicated to try to help this left fourth fingernail grow back normally. Physical examination continues to reveal a significant dystrophy of the remaining left fourth fingernail. The biopsy was taken laterally along the entire length of the nail plate into the nailbed. There is no new normal nail growing out yet underneath the proximal nail fold. Assessment plan: Nail dystrophy with onycholysis, left fourth fingernail 1. Today 0.25 mL of 5 mg/mL Kenalog were injected through the proximal nail fold down to the root of the nail. 2. Patient tolerated well without anesthetic. 3. Explained that we will take a month or 2 to see improvement 4. Recommend monthly visits with likely monthly repeat of Kenalog to bring about normal nail growth 5. Return to clinic in 1 month. CC: Galina Lowe APRN documented in this encounter Plan of Treatment Not on file documented as of this encounter Visit Diagnoses Diagnosis Paronychia of finger of left hand documented in this encounter Care Teams Social Media Intern Relationship Specialty Start Date End Date Glaina Lowe APRN [address] [place] [address] PCP - General Family Medicine 07/11/20 documented as of this encounter
--- OUTSIDE RECORDS SUMMARY | 2024-02-19 22:11 | XMS_ITS | Encounter Summary ---
[place] [address] Care Team Providers Care Broadcast Systems Engineer Name Role Phone Galina Lowe APRN Primary Care Provider Encounter Details Date Type Department Care Team (Latest Contact Info) Description 08/31/2023 Travel Social History Tobacco Use Types Packs/Day [...] on filedocumented in this encounter Care Teams Broadcast Systems Engineer Relationship Specialty Start Date End Date Galina Lowe APRN [address] [place], [place] [address] PCP - General Family Medicine 07/11/20 documented as of this encounter
--- OUTSIDE RECORDS SUMMARY | 2024-02-19 22:11 | XMS_ITS | Encounter Summary ---
Author Organization [facility] [place] [address] Care Team Providers Care Anthropology Instructor Name Role Phone Galina Lowe APRN Primary Care Provider Reason for Visit * Reason Comments Follow-up Encounter Details Date Type Department Care Team (Late st Contact Info) Description 08/31/2023 11:30 AM EDT Office Visit Dermatology at [address] [phone] Glenroy Henry MD 580 [facility], [facility] [place] [address] Paronychia of finger of left hand Social History Tobacco Use Types Packs/Day Years Used Date Smoking Tobacco: Never Smokeless Tobacco: Never Sex and Gender Information Value Date Recorded Sex Assigned at Not on file Gender Identity Not on file Sexual Orientation Not on file documented as of this encounter Progress Notes * Glenroy Henry MD - 08/31/2023 11:30 AM EDT Images from the original note were not included. Problem: 1. Chronic paronychia/tinea unguium left fourth finger, status post course of terbinafine 2. 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 4. Normal x-ray left fourth fingernail June 2023 5. 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 Physical examination is a pleasant 58-year-old woman who has changes changes of her left fourth fingernail as documented with the following clinical photograph. 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 Today 0.2 mL of 5 mg mL Kenalog injected through the proximal nail fold down to the root of the nail 2. Patient had a good blanching reaction 3. Patient tolerated well without anesthetic 4. Return to clinic in another month for repeat check. CC: Galina Lowe APRN documented in this encounter Plan of Treatment Not on file documented as of this encounter Visit Diagnoses Diagnosis Paronychia of finger of left hand documented in this encounter Care Teams Anthropology Instructor Relationship Specialty Start Date End Date Galina Lowe APRN [address] [place] [address] PCP - General Family Medicine 07/11/20 documented as of this encounter
--- OUTSIDE RECORDS SUMMARY | 2024-02-19 22:11 | XMS_ITS | Encounter Summary ---
[place] [address] Care Team Providers Care Junior Graphic Designer Name Role Phone Galina Lowe APRN Primary Care Provider Encounter Details Date Type Department Care Team (Latest Contact Info) Description 08/03/2023 Travel Social History Tobacco Use Types Packs/Day [...] on filedocumented in this encounter Care Teams Junior Graphic Designer Relationship Specialty Start Date End Date Galina Lowe APRN [address] [place], [place] [address] PCP - General Family Medicine 07/11/20 documented as of this encounter
--- OUTSIDE RECORDS SUMMARY | 2024-02-19 22:11 | XMS_ITS | Encounter Summary ---
Author Organization [facility] [place] [address] Care Team Providers Care Regional Operations Director Name Role Phone Galina Lowe APRN Primary Care Provider Encounter Details Date Type Department Care Team (Late st Contact Info) Description 07/16/2023 Telephone Dermatology at [address] [phone] Alicia Owens RN Social History Tobacco Use Types Packs/Day Years Used Date Smoking Tobacco: Never Smokeless Tobacco: Never Sex and Gender Information Value Date Recorded Sex Assigned at Not on file Gender Identity Not on file Sexual Orientation Not on file documented as of this encounter Miscellaneous Notes * Telephone Encounter - Alicia Owens RN - 07/16/2023 4:17 PM EST Patient called per Dr. Henry. She had a biopsy on 07/06/[address] Blanc nail avulsion wit biopsy of nail fold and matrix. Dr. Schofield and Dr. Henry recommends that patient return to the clinicto discuss possible steroid shot and set up an appointment. Patient stated that Dr. Blanc called 07/15/2023 and provided her with the Bx results. Patient informed of the recommendation and she stated that she understood. Patient scheduled an appointment for 08/03/2023 documented in this encounter Plan of Treatment Not on file documented as of this encounter Visit Diagnoses Not on filedocumented in this encounter Care Teams Regional Operations Director Relationship Specialty Start Date End Date Galina Lowe APRN [address] [place], [place] [address]Y [facility] [address] [place] [address] PCP - General Family Medicine 07/11/20 documented as of this encounter
--- OUTSIDE RECORDS SUMMARY | 2024-02-19 22:11 | XMS_ITS | Encounter Summary ---
Author Organization Formerly [facility] Address [facility] [place] [address] Care Team Providers Care Senior Sales Manager Name Role Phone Galina Lowe APRN Primary Care Provider [phone] Reason for Visit * Reason Comments Advice Only Consult for scar on upper lip * Consultation (Routine) - Closed Specialty Diagnoses / Procedures Referred By Tammy figueroa Referred To Contact Plastic Surgery Diagnoses Scar revision upper cutaneous lip Glenroy Henry MD [address] [place] [address], [place] [address] [facility] [place] [address] Referral ID Status Reason Start Date Expiration Date Visits Re quested Visits Authorized [id number] Closed 06/15/2023 06/14/2024 1 1 Encounter Details Date Type Department Care Team (Late st Contact Info) Description 08/24/2023 9:00 AM EDT Office [place] [address] Jim Conrad MD [facility] [place] [address] Scar of lip Social History Tobacco Use Types Packs/Day Years Used Date Smoking Tobacco: Never Smokeless Tobacco: Never Sex and Gender Information Value Date Recorded Sex Assigned at Not on file Gender Identity Not on file Sexual Orientation Not on file documented as of this encounter Last Filed Vital Signs Vital Sign Reading Time Taken Comments Blood Pressure - - Pulse - - Temperature - - Respiratory Rate - - Oxygen Saturation - - Inhaled Oxygen Concentration - - Weight 63.5 kg (140 lb) 08/24/2023 8:46 AM EDT Height 170.2 cm (5' 7) 08/24/2023 8:46 AM EDT Body Mass Index 21.93 08/24/2023 8:46 AM EDT documented in this encounter Patient Instructions * Patient Instructions* Sadaf Smiley RN - 08/24/2023 9:00 AM EDT Minor Room Procedure Instructions You were given written and verbal preoperative instructions today. If you are a smoker, we ask that you stop at least 2 months prior to your surgical date and remain nicotine free for at least a month after surgery. Smoking can impair healing and increase your chance of infection. To prepare for your upcoming procedure: Two weeks prior to surgery Do not take any Aspirin or aspirin containing products for the 2 weeks leading up to surgery. You may resume taking 48 hours after surgery. Do not take medications containing Ibuprofen. Do not take any anti-steroidal's such as Advil, Aleve, Celebrex, Daypro, Indocin, Midol, Motrin, Naproxen, Nuprinand Toradol. These medications increase your risk of bleeding. You may resume taking any of these medications 48 hours after surgery. Stop Vitamin E, Garlic supplements, Ginseng, Fish Oil tablets, Ginkgo and Yonathan's Wort and any other herbals. You may resume taking 48 hours after surgery. If you need medication for pain, you may take Tylenol or extra strength Tylenol during this two week period. One week prior to surgery Please call if you feel ill, have cold or fever, have a rash or breaks in skin near your surgical site. Stay hydrated. Three days before surgery Do not shave near your surgical site One day before surgery Head and Neck Surgery - Wash your face and neck with an antibacterial soap the night before and themorning of surgery. Day of Procedure A screw driver operator is recommended but not required. There are No dietary restrictions. You may eat and drink up until the time of your procedure. DO NOT wear any jewelry, makeup or artificial nails. DO NOT apply any lotions, powders or deodorants near or at surgical site. Do wear comfortable, loose fitting clothes. You will be awake during this procedure. The Surgeon will inject the area of your procedure with a local anesthetic. This will sting/burn. During the procedure, you will have a sensation of pressure but not pain. If you are having hand surgery, a tight cuff may be put on the surgical arm to help prevent bleeding. After your procedure, you will be given written and verbal instructions on how to care for your surgical site. Contact Information: During regular office hours (Wednesday- Wednesday, non-holiday 8:00 am- 5:00 pm) For an appointment or insurance questions For questions pertaining to your surgical date [phone] For nursing related questions [phone] On weekends, holidays or after office hours: Call and ask the inner tube tuber machine operator to page the Plastic Surgery Resident control operator. documented in this encounter Progress Notes * Jim Conrad MD - 08/24/2023 9:00 AM EDT Plastic Surgery Consultation Note Provider: Jim Conrad MD PCP: Galina Lowe APRN COPY CENTER OPERATOR: Glenroy Henry MD CC: Scar on upper lip HPI: Romy Bhakta is a 58 y.o. female here in consultation at the request of Glenroy Henry MD. The patient sustained a laceration on her upper lip when she fell secondary to an epileptic seizure in July 2022, that was closed with surgical glue. She now has a scar that is bothersome to her. 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 Patient admits to use of tobacco products. No past medical history on file. No past surgical history on file. Social History Socioeconomic History Marital status: Spouse name: Not on file Number of children: Not on file Years of education: Not on file Highest education level: Not on file Occupational History Not on file Tobacco Use Smoking status: Never Smokeless tobacco: Never Substance and Sexual Activity Alcohol use: Not on file Drug use: Not on file Sexual activity: Not on file Other Topics Concern Not on file Social History Narrative Not on file Social Determinants of Health Financial Resource Strain: Not on file Food Insecurity: Not on file Transportation Needs: Not on file Physical Activity: Not on file Intimate Partner Violence: Not on file Housing Stability: Not on file No Known Allergies Current Outpatient Medications on File Prior to Visit Medication Sig Dispense Refill ferrous gluconate (Ferate) 324 mg (37.5 mg iron) tablet Take 324 mg by mouth daily. No current facility-administered medications on file prior to visit. Examination: Ht 170.2 cm (5' 7) Wt 63.5 kg (140 lb) BMI 21.93 kg/m?? Constitutional: No acute distress Facial nerve intact in all divisions CNV in tact Vertical scar to the left of the philtral column, thin epithelial coverage over the orbicularis. Some hyperpigmentation of scar 2 cm in length Impression: Romy Bhakta 58 y.o. female patient with an upper lip scar. I explained the natural history of this condition. We discussed the possibility of scar revision. I explained that I can never completely get this to turn into something that isn't a scar, however we can make things better. Her incision will be red for quite some time following excision of this, and can take up to a full year before it starts to fade. We discussed the importance of wearing sunscreen when outside. We discussed potential risks and complications which include but are not limited to pain, bleeding,infection, scarring, asymmetry, hematoma, seroma, poor cosmetic outcome, failure of procedure/failure to meet their expectations, possible need for revision, damage to adjacent structures, and relapse. The patient wishes to proceed with the procedure. Patient is aware that she will need to take it easy for a few days following the procedure. Plan: Schedule MSO. 2. Need to discontinue blood thinners pre-op? N/A. MNS Procedure: scar revision/excision of benign lesion upper lip Timeframe: Elective Time allotted: 60 mins CPT : 65075, 29431 Follow up: 7-10 days with NSO Veena Hui am acting as scribe for Jim Conrad MD. All work documented was performed by Jim Conrad MD. I performed the services which were documented by the scribe, and I agree with the accuracy of the documentation in this encounter. JIM CONRAD MD documented in this encounter Plan of Treatment Not on file documented as of this encounter Visit Diagnoses Diagnosis Scar of lip Diseases of lips documented in this encounter Care Teams Senior Sales Manager Relationship Specialty Start Date End Date Galina Lowe APRN [address] [place] [address] PCP - General Family Medicine 07/11/20 documented as of this encounter
--- OUTSIDE RECORDS SUMMARY | 2024-02-19 22:11 | XMS_ITS | Encounter Summary ---
Author Organization Count Includes [facility] [address] Care Team Providers Care Bus Driver Supervisor Name Role Phone Galina Lowe APRN Primary Care Provider Reason for Referral * Surgical (Routine) - Duplicate Referral Specialty Diagnoses / Procedures Referred By Tammy figueroa Referred To Contact Plastic Surgery Diagnoses Scar of lip Procedures Wound repair inter(face/ear/lip/nose/m m) Jim Willson MD [facility] [place] [address] [facility] [place] [address] Referral ID Status Reason Start Date Expiration Date Visits Requested Visits Authorized [id number] Duplicate Referral Consult, Test & Treat 11/25/2023 11/24/2024 1 1 Reason for Visit * Reason Comments Procedure * Surgical (Routine) - New Request Specialty Diagnoses / Procedures Referred By Tammy figueroa Referred To Contact Plastic Surgery Diagnoses scar rev ision upper lip w/Dr. Willson CPT 14238, [address] Procedures PROCEDURE Self mail Jim Willson MD [facility] [place] [address] Referral ID Status Reason Start Date Expiration Date V isits Requested Visits Authorized [id number] New Request 10/14/2023 10/13/2024 5 5 Encounter Details Date Type Department Care Team (Late st Contact Info) Description 11/18/2023 10:00 AM EDT Procedure visit [place] [address] Jim Willson MD [facility] [place] [address] Scar of lip Social History Tobacco Use Types Packs/Day Years Used Date Smoking Tobacco: Never Smokeless Tobacco: Never Sex and Gender Information Value Date Recorded Sex Assigned at Not on file Gender Identity Not on file Sexual Orientation Not on file documented as of this encounter Patient Instructions * Patient Instructions* Estrella Amaya, Margret - 11/18/2023 10:00 AM EDT The healing process is different for each person / and or procedure. You can expect some discomfort. There will also be swelling and possible bruising that will subsidein the next few days or weeks. Note that your pain, swelling, bruising and drainage are directly related to activity. Dressing: Keep your incision/dressing dry 2-3 days. You may shower after this time, but do not soak in a poolor bath until completely healed. Steri Strips : Leave the strips in place until your next visit or until they fall off. Glue : Your incision has been sealed with a Skin glue. Do not apply any ointments. You do not need a dressing. Sutures: Your sutures need to be removed in 5-7 days. Spitting Sutures : Occasionally an area of redness & tenderness develops where a dissolving stitch becomes irritated & pushed to the surface. This stitch is clear or white & looks like fish line. If it occurs, it is not an emergency. You may clip the stitch or call the clinic for an appointment with the nurse. If bleeding occurs which soaks through the outside bandage, apply firm, direct pressure with your hand over the bandage for 15 minutes. Activity Restrictions: To minimize swelling,pain, & bleeding follow these instructions: Face/Lip Surgery: Keep the affected hand elevated above the heart for the next 2-7 days. Do not lift with or strain the hand. Do not wash dishes or soak in a tub of water. Remain upright for the rest of the day. Sleep with an extra pillow for 1-2 nights. Avoid strenuous activity, heavy lifting, and bending below the waist for one week. Keep surgery site elevated as much as possible for several days. Protect your incision from the sun for at least 6 months. Medication: Take regular or extra strength Tylenol as directed. Avoid Ibuprofen and Aspirin for 48 hours. Problems to report to your doctor: . A Temperature over 100 F or 38 C. . Excessive redness or warmth spreading away from the incision line after the first 48 hours. . Thick, yellow, foul smelling drainage larger than a dime from the incision or drain site. . Increased pain that is not relieved by you pain medicine. Contact Your Doctor: . During Office Hours: Wednesday through Wednesday from 8am - 5pm Call . On weekends or after office hours:Call and ask the air compressor operator to page the plastic surgeon environmental engineering technician. . Prescription Line: Call the line at from 8am-4pm Wednesday through Wednesday. documented in this encounter Progress Notes * Anjelica Arellano - 11/18/2023 10:00 AM EDT Minor Procedure Note Plastic Surgery Jim Willson MD. Procedure: Excision lesion 2.5 cm with layered closure 2.5 cm Anatomic Location: Left upper lip Pre-op diagnosis: Traumatic scar Consent: Written from patient after discussion of risks and benefits. Anesthesia: Local with lidocaine 1% with epi Description: After anesthesia was provided, the site was prepped and draped in sterile fashion. A elliptical incision was made around the the scar and excised at the level of the subcutaneous tissue.I then undermined the skin just above the orbicularis muscle on either side this was advanced centrally and the wound was closed in layers with deep 4-0 PDS sutures and 5-0 Prolene in the level of the skin. Steri-Strips were applied Specimens: specimen sent to pathology for testing. Complications: none immediate Disposition: Pt. tolerated the procedure well. After the procedure, the patient was given detailed wound care instructions and discharged home. documented in this encounter Procedure Notes * Estrella Amaya RMA - 11/18/2023 10:00 AM EDT Plastic Surgery Minor Worksheet Surgery: Left upper lip scar re-vision excision Skin Prep: Betadine 5 % to lower half of face and lips Cautery Unit: MNS 1 [id number] Grounding Pad Site: stomach Settings: Coag: Cutting: Not used. Xylocaine w/epi 1:200,000: 1 cc Prescription:N/A Post op instructions: See AVS documented in this encounter Plan of Treatment Scheduled Orders Name Type Priority Associated Diagnoses Orde r Schedule ExcisBen Les(Face/ear/eyld/nse/l ip)(MSO) Dermatology Routine Scar of lip Ordered: 11/25/2023 Wound repair inter(face/ear/lip/nose /mm) Procedures Routine Scar of lip Ordered: 11/25/2023 documented as of this encounter Visit Diagnoses Diagnosis Scar of lip Diseases of lips documented in this encounter Care Teams Bus Driver Supervisor Relationship Specialty Start Date End Date Galina Lowe APRN [address] [place] [address] PCP - General Family Medicine 07/11/20 documented as of this encounter
--- OUTSIDE RECORDS SUMMARY | 2024-02-19 22:11 | XMS_ITS | Encounter Summary ---
Author Organization [facility] Address [facility] [place] [address] Care Team Providers Care Sales Administration Manager Name Role Phone Galina Lowe APRN Primary Care Provider Encounter Details Date Type Department Care Team (Late st Contact Info) Description 07/15/2023 Telephone Dermatology at [facility] [address] [place] [address] Dago Prieto MD [facility] [place] [address] Social History Tobacco Use Types Packs/Day Years Used Date Smoking Tobacco: Never Smokeless Tobacco: Never Sex and Gender Information Value Date Recorded Sex Assigned at Not on file Gender Identity Not on file Sexual Orientation Not on file documented as of this encounter Miscellaneous Notes * Telephone Encounter - Dago Prieto MD - 07/15/2023 3:33 PM EST Called patient with biopsy results: DIAGNOSIS Nail bed and matrix, 4th finger of left hand, biopsy: - Nail bed and matrix with squamous hyperplasia, parakeratosis containing neutrophils (see Discussion) No evidence of malignancy or fungus. At this point, I think she might benefit from kenalog injection, but will defer to Dr. Henry for ongoing management. Dago Prieto MD PhD Mohs Micrographic Surgery and Dermatologic Oncology Department of Dermatology documented in this encounter Plan of Treatment Not on file documented as of this encounter Visit Diagnoses Not on filedocumented in this encounter Care Teams Sales Administration Manager Relationship Specialty Start Date End Date Galina Lowe APRN [address] [place] [address] PCP - General Family Medicine 07/11/20 documented as of this encounter
--- OUTSIDE RECORDS SUMMARY | 2024-02-19 22:11 | XMS_ITS | Encounter Summary ---
[place] [address] Care Team Providers Care Nuclear Reactor Operator Name Role Phone Galina Lowe APRN Primary Care Provider [phone] Encounter Details Date Type Department Care Team (Latest Contact Info) Description 08/24/2023 Travel Social History Tobacco Use Types Packs/Day [...] on filedocumented in this encounter Care Teams Nuclear Reactor Operator Relationship Specialty Start Date End Date Galina Lowe APRN [address] [place], [place] [address] PCP - General Family Medicine 07/11/20 documented as of this encounter
--- OUTSIDE RECORDS SUMMARY | 2024-02-19 22:11 | XMS_ITS | Encounter Summary ---
[place] [address] Care Team Providers Care Cinder Man Name Role Phone Galina Lowe APRN Primary Care Provider Encounter Details Date Type Department Care Team (Latest Contact Info) Description 11/18/2023 Travel Social History Tobacco Use Types Packs/Day [...] on filedocumented in this encounter Care Teams Cinder Man Relationship Specialty Start Date End Date Galina Lowe APRN [address] [place], [place] [address] PCP - General Family Medicine 07/11/20 documented as of this encounter
--- OUTSIDE RECORDS SUMMARY | 2024-02-19 22:12 | XMS_ITS | Encounter Summary ---
Author Organization [facility] [place] [address] Care Team Providers Care Cement Mason Name Role Phone Galina Lowe APRN Primary Care Provider Encounter Details Date Type Department Care Team (Late st Contact Info) Description 09/02/2021 Refill Dermatology at [address] [place] [address] Alicia Owens, RN Social History Tobacco Use Types Packs/Day [...] on filedocumented in this encounter Care Teams Cement Mason Relationship Specialty Start Date End Date Galina Lowe APRN [address] [place] [address] PCP - General Family Medicine 07/11/20 documented as of this encounter
--- OUTSIDE RECORDS SUMMARY | 2024-02-19 22:12 | XMS_ITS | Encounter Summary ---
[place] [address] Care Team Providers Care High School Assistant Football Coach Name Role Phone Galina Lowe APRN Primary Care Provider Encounter Details Date Type Department Care Team (Latest Contact Info) Description 06/15/2023 Travel Social History Tobacco Use Types Packs/Day [...] on filedocumented in this encounter Care Teams High School Assistant Football Coach Relationship Specialty Start Date End Date Galina Lowe APRN [address] [place], [place] [address] PCP - General Family Medicine 07/11/20 documented as of this encounter
--- OUTSIDE RECORDS SUMMARY | 2024-02-19 22:12 | XMS_ITS | Encounter Summary ---
[place] [address] Care Team Providers Care Wardrobe Stylist Name Role Phone Galina Lowe APRN Primary Care Provider Encounter Details Date Type Department Care Team (Latest Contact Info) Description 07/06/2023 Travel Social History Tobacco Use Types Packs/Day [...] on filedocumented in this encounter Care Teams Wardrobe Stylist Relationship Specialty Start Date End Date Galina Lowe APRN [address] [place], [place] [id number] PCP - General Family Medicine 07/11/20 documented as of this encounter
--- OUTSIDE RECORDS SUMMARY | 2024-02-19 22:12 | XMS_ITS | Encounter Summary ---
Author Organization [facility] Address [facility] [place] [address] Care Team Providers Care Budget Record Clerk Name Role Phone Galina Lowe APRN Primary Care Provider [phone] Reason for Visit * Reason Comments Skin Check Encounter Details Date Type Department Care Team (Late st Contact Info) Description 07/11/2020 3:15 PM EST Office Visit Dermatology at [address] [place] [address] Glenroy Henry MD [address] [facility] [place] [address] Paronychia of finger of left hand Social History Tobacco Use Types Packs/Day Years Used Date Smoking Tobacco: Never Smokeless Tobacco: Never Sex and Gender Information Value Date Recorded Sex Assigned at Not on file Gender Identity Not on file Sexual Orientation Not on file documented as of this encounter Progress Notes * Glenroy Henry MD - 07/11/2020 3:15 PM EST Problem: New patient, left fourth finger nail onycholysis Jenny is a 55-year-old woman who 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 Perhaps 15 years ago she injured her finger nail at work when a piece of metal which is up in between the nail plate and the nail bed. She was do the metal but again injured it at a later time with with in a short time following the first injury. Unfortunately since then she has had problems with distal nail onycholysis and subungual hyperkeratotic debris. At one time the nail was surgically avulsed and then it was allowed to grow back. Unfortunately on a regular basis, almost every 2 weeks, she will get what sounds like recurrent pustules that develop at the distal fingertip and extend somewhat back under the nail plate itself. The patient today shows me photographs from her cell phone of such an outbreak. The patient is seen in consultation today for Galina Lowe. Physical examination reveals indeed that the distal one half of the left fourth fingernail is involved with onycholysis with some underlying hyperkeratotic debris. Today there are no pustules no erythema. The lateral nail fold and the cuticle appear to be normal and wet today without inflammation. Assessment plan: Injured left fourth fingernail with recurrent episodes of what sounds like a candidal paronychia involving really the subungual area in the distal fingertip 1. Try to keep finger dry by wearing a finger cot at work when she is doing her waitressing. We discussed how the frequent water contact is adversely affecting the healing of this nail area. 2. Begin thymol 3% in ethyl alcohol applying to affected area on a twice daily basis for the next 4months. Dispense 30 mL with 2 refills. A hand written prescription was given to patient to take to the pharmacy, [facility] 3. Discussed that it will take about 4 months to see significant provement that she could should stay the course and continue the medication for that period of time 4. I have asked patient to contact me after that with her progress. CC: Galina Lowe APRN documented in this encounter Plan of Treatment Not on file documented as of this encounter Visit Diagnoses Diagnosis Paronychia of finger of left hand documented in this encounter Care Teams Budget Record Clerk Relationship Specialty Start Date End Date Galina Lowe APRN [address] [facility] [address] [place] [address] PCP - General Family Medicine 07/11/20 documented as of this encounter
--- OUTSIDE RECORDS SUMMARY | 2024-02-19 22:12 | XMS_ITS | Encounter Summary ---
Author Organization [facility] Address [facility] [place] [address] Care Team Providers Care Pediatric Cardiologist Name Role Phone Galina Lowe APRN Primary Care Provider Encounter Details Date Type Department Care Team (Latest Contact Info) Description 05/20/2021 8:59 PM EST - 05/20/2021 11:59 PM EST Hospital [place] [address] Discharge Disposition: Home Social History Tobacco Use Types Packs/Day Years Used Date Smoking Tobacco: Never Smokeless Tobacco: Never Sex and Gender Information Value Date Recorded Sex Assigned at Not on file Gender Identity Not on file Sexual Orientation Not on file documented as of this encounter Plan of Treatment Not on file documented as of this encounter Procedures Procedure Name Priority Date/Time Associated Diagnosis Comments SURGICAL PATHOLOGY REPORT Routine 05/20/2021 12:00 PM EST documented in this encounter Results * Surgical Pathology Report (05/20/2021 12:00 PM EST) Final Diagnosis [id number] ? Location: [facility] The signing pathologist has (i) examined the relevant preparation(s) for the specimen(s) and (ii) rendered or confirmed the diagnosis(es). . ?Surgical Pathology DIAGNOSIS Right nasal sidewall, skin punch biopsy: - Acanthosis with mild spongiosis and perivascular lymphocytes and scattered eosinophils ??(see discussion) Electronically signed by: ?Miriam Shin MD Verified: ??06/04/2021 16:08 ??Dermatopathologist Performed at: ??-[facility] Dept[facility] of [facility], [place], [place] DISCUSSION Sections show epidermal acanthosis and mild spongiosis, parakeratosis, focal exocytosis of lymphocytes, and a superficial perivascular lymphocytic infiltrate with scattered eosinophils. No fungal hyphae are detected with a PAS stain. C/Iron stain highlights some increase in dermal mucin. Overall, the findings are not entirely specific. A mildly eczematous hypersensitivity reaction or a spongiotic dermatitis such as eczema could be considered. While there is subtle increase in dermal mucin and the ?possibility ??of connective tissue disorders was considered, however, the ?? absence ??of significant interface changes or periadnexal inflammation is not supportive. In addition, the presence of scattered eosinophils is unusual. Clinicopathologic correlation is recommended. ADDITIONAL STUDIES Multiple step-leveled sections were reviewed. SPECIMEN(S) SUBMITTED A - R nasal sidewall, 4 mm punch Referring Identifier: ?(not provided) CLINICAL INFORMATION Right nasal sidewall, since December facial malar dermatitis, R/O DLE SPECIMEN PROCESSING A - Labeled/Fixative: Patient demographics, formalin. Quantity/Size: ??Single, 0.4 cm in diameter and 0.2 cm in depth. Tissue Description: Oh skin punch with a granular uniform skin surface. Sections/Processing: Inked, bisected and entirely submitted in 1 cassette labeled A1. ??RAYSA 06/04/2021 4:08 PM EST [facility] SPECIMEN FROM SKIN / Unknown 05/20/2021 12:00 PM EST 05/20/2021 12:00 PM EST Glenroy Henry MD PATHOLOGY/CYTOLOGY O RDERABLES [facility] [place] [address] documented in this encounter Visit Diagnoses Not on filedocumented in this encounter Care Teams Pediatric Cardiologist Relationship Specialty Start Date End Date Galina Lowe APRN [address] [place] [address] PCP - General Family Medicine 07/11/20 documented as of this encounter
--- OUTSIDE RECORDS SUMMARY | 2024-02-19 22:12 | XMS_ITS | Encounter Summary ---
Author Organization [facility] [place] [address] Care Team Providers Care Television News Video Editor Name Role Phone Galina Lowe APRN Primary Care Provider Reason for Visit * Reason Comments Follow-up Encounter Details Date Type Department Care Team (Late st Contact Info) Description 06/15/2023 1:30 PM EST Office Visit Dermatology at [address] [address] Glenroy Henry MD [address] [facility] [place] [address] Paronychia of finger of left hand Social History Tobacco Use Types Packs/Day Years Used Date Smoking Tobacco: Never Smokeless Tobacco: Never Sex and Gender Information Value Date Recorded Sex Assigned at Not on file Gender Identity Not on file Sexual Orientation Not on file documented as of this encounter Progress Notes * Glenroy Henry MD - 06/15/2023 1:30 PM EST Problem: 1. Chronic paronychia/tinea unguium left fourth finger, status post course of terbinafine 2. 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 Jenny follows up after last being seen in December 2021. Unfortunately she continues to have distal onycholysis of the distal one half of her left fourth fingernail. This despite the nail having been avulsed once by Dr. Peralta, then undergoing a course of terbinafine orally in my office, and then using atrial of thymol 2% ethyl alcohol. Physical examination reveals distal onycholysis of the distal half of her left fourth fingernail. She has a slightly darkened thin linear vertical scar of the upper cutaneous lip along the left lateral margin of the cupids bow from where she fell and injured herself during elliptical epileptic seizure in August 06. It runs from the vermilion border up to her nose. Assessment plan: Nail dystrophy with onycholysis 1. Today we will check x-ray to rule out underlying cyst/bony abnormality 2. If this is unrevealing would refer to [facility] for biopsy of nail bed. This may represent a glomus tumor Left lower cutaneous lip scar following epileptic seizure 1. Will refer to plastic surgery at [facility] for possible scar revision. CC: Galina Lowe APRN documented in this encounter Plan of Treatment Not on file documented as of this encounter Visit Diagnoses Diagnosis Paronychia of finger of left hand documented in this encounter Care Teams Television News Video Editor Relationship Specialty Start Date End Date Galina Lowe APRN [address] [place] [address] PCP - General Family Medicine 07/11/20 documented as of this encounter
--- OUTSIDE RECORDS SUMMARY | 2024-02-19 22:12 | XMS_ITS | Encounter Summary ---
Author Organization [facility] Address [facility] [place] [address] Care Team Providers Care Sales Account Representative Name Role Phone Galina Lowe APRN Primary Care Provider Encounter Details Date Type Department Care Team (Latest Contact Info) Description 07/06/2023 2:30 PM EST Procedure visit Dermatology at [facility] [address] [place] [address] Dago Prieto MD [facility] [address] [place] [place] [address] Paronychia of finger of left hand Social History Tobacco Use Types Packs/Day Years Used Date Smoking Tobacco: Never Smokeless Tobacco: Never Sex and Gender Information Value Date Recorded Sex Assigned at Not on file Gender Identity Not on file Sexual Orientation Not on file documented as of this encounter Progress Notes * Dago Prieto MD - 07/06/2023 2:30 PM EST Images from the original note were not included. Dermatologic Surgery Operative Report (Procedure: Nail Avulsion With Biopsy of Nail fold and Matrix) Patient Name: Patient: Romy Bhakta Date of . 1965 Today's Date: 07/06/2023 Date of : 08/23/1947 Visit date: 07/06/2019 STAFF SURGEON: Dago Prieto MD, PhD ASSISTANTS: Kiana Crystal LPN Postoperative Diagnosis: pending Final Pathology: pending Lesion Site (location): left 4th nail unit/finger Total anesthesia volume used for today: 2 cc 1% 1:100,000 lidocaine with epinephrine INDICATION DIAGNOSIS/REMOVAL of SYMPTOMATIC NAIL, AND NAIL MATRIX BIOPSY TO RULE OUT MALIGNANCY IMAGES PROCEDURE >Nail avulsion with nail matrix and bed biopsy Prior to the procedure, final verification of the patient identity and correct marked surgical sitewas performed. Procedural pause (timeout) was performed. PREOPERATIVE MEDICATIONS: [x] None The site was prepped with an alcohol swab. The anesthesia used was 1% lidocaine epinephrine for thedigital nerve block at the proximal aspect of the digit to block the ventral and dorsal aspects of the proximal digit using a 31 gauge needle. The digit was then allowed to soak in a 2% chlorhexidinesolution for approximately 15 minutes. The surgical site was prepped with 2% chlorhexidine and draped in a sterile manner using a sterile glove to cover remaining digits on the hand. A tourniquet wasplaced at the proximal end of the digit and timer set for 15 minutes; this was removed prior to endof 15 minutes. . A nail elevator was used to separate the nail from the nail bed. The proximal nailfold was detached from the nail plate using the nail separator. The nail plate was then lifted.and the nail matrix was biopsied, proximal and distal nail matrix, in elliptical fashion. 5.0 chromic gut sutures were placed in the proximal nail fold. Pressure dressing Was applied. Estimated blood loss: Minimal. Complications: None. POST OPERATIVE MEDICATIONS: [x] None Wound care: Routine. Patient instructed to leave initial pressure bandage that was placed today for48 hours. Once initial pressure bandage is removed, instructed to begin wound care daily including cleansing with soap/water followed by application of petrolatum (from a tube, using clean cotton swab) to any areas of open wounds or crusting. Follow with bandaid or bandage. Continue until the nail bed hardens. Return to activity as tolerated. Follow up: based on pathology results Dago Prieto MD PhD Mohs Micrographic Surgery and Dermatologic Oncology Section of Dermatology, Department of Surgery documented in this encounter Plan of Treatment Not on file documented as of this encounter Procedures Procedure Name Priority Date/Time Associated Diagnosis Comments SPECIMEN TO PATHOLOGY Routine 07/06/2023 4:13 PM EST Paronychia of finger of left hand SURGICAL PATHOLOGY REPORT Routine 07/06/2023 4:06 PM EST documented in this encounter Results * Specimen to Pathology (07/06/2023 4:13 PM EST) AP Specimen 07/06/2023 4:13 PM EST 07/06/2023 4:13 PM EST Narrative [facility] - 07/06/2023 4:13 PM EST Specimen requisition ordered. ??Separate Pathology report to follow Dago Prieto MD PATHOLOGY/CYTOLOGY ORDERABLES Performing Organization Address City/State/[place] Co de Phone Number [facility] [place] [address] * Surgical Pathology Report (07/06/2023 4:06 PM EST) Final Diagnosis [id number] ? Location: [facility] The signing pathologist has (i) examined the relevant preparation(s) for the specimen(s) and (ii) rendered or confirmed the diagnosis(es). . ?Surgical Pathology DIAGNOSIS Nail bed and matrix, 4th finger of left hand, biopsy: - Nail bed and matrix with squamous hyperplasia, ?parakeratosis containing neutrophils ??(see Discussion) Electronically signed by: ?Tanner LAGOS, PhD, [facility] Verified: ??07/09/2023 9:55 ?? Dermatopathologist Performed at: ??-[facility] Dept. of Pathology, [place] [address] Career Orientation Teacher: Amos Fink MD, FCAP, ??CLIA Certificate: [id number] DISCUSSION No fungi are seen in PAS-reacted sections. The biopsy is negative for malignancy. Multiple deeper levels have been examined. SPECIMEN(S) SUBMITTED A - 4th finger of left hand., biopsy (2) CLINICAL INFORMATION Clinically dystrophic nail. ??Proximal distal matrix and nailbed. SPECIMEN PROCESSING A - Labeled/Fixative: Fourth finger of left hand, formalin. Quantity/Size: Two, averaging 1.4 cm in greatest dimension. Tissue Description: Soft, clark-pink tissues. Sections/Processing: Submitted in toto ??in 1 cassette labeled A1. ??krd 07/09/2023 9:55 AM EST [facility] SPECIMEN FROM SKIN / Unknown 07/06/2023 4:06 PM EST 07/06/2023 4:06 PM EST Dago Prieto MD PATHOLOGY/CYTOLOGY ORDERABLES [facility] [place] [address] [facility] [place] [address] documented in this encounter Visit Diagnoses Diagnosis Paronychia of finger of left hand documented in this encounter Care Teams Sales Account Representative Relationship Specialty Start Date End Date Galina Lowe APRN [address] [place] [address] PCP - General Family Medicine 07/11/20 documented as of this encounter
--- OUTSIDE RECORDS SUMMARY | 2024-02-19 22:12 | XMS_ITS | Encounter Summary ---
Author Organization [facility] Address [facility] [place] [address] Care Team Providers Care Health And Safety Tech Name Role Phone Galina Lowe APRN Primary Care Provider Reason for Visit * Reason Comments Follow-up Encounter Details Date Type Department Care Team (Late st Contact Info) Description 11/18/2021 10:45 AM EDT Office Visit Dermatology at [address] [address] Glenroy Henry MD [address] [facility] A DERMATOLOGY [place], [place] [id number] Rosacea; Paronychia of finger of left hand; Tinea unguium Social History Tobacco Use Types Packs/Day Years Used Date Smoking Tobacco: Never Smokeless Tobacco: Never Sex and Gender Information Value Date Recorded Sex Assigned at Not on file Gender Identity Not on file Sexual Orientation Not on file documented as of this encounter Progress Notes * Glenroy Henry MD - 11/18/2021 10:45 AM EDT Problem: 1. ??Chronic paronychia/tinea unguium left fourth finger, status post course of terbinafine 2. ??Facial dermatitis since at least December, now with improvement on metronidazole x2 months Jenny follows up and is doing much better. She has had good control of the facial dermatitis as long she uses the MetroGel on a once daily basis. She is very very pleased. She is waiting however for the left fourth fingernail to grow out and normalize. It seems about the same unchanged from her last visit. Physical examination reveals no facial erythema or dermatitis no redness. She has no papules or pustules. She continues to have about 4 mm of normal nail plate at the narrowest point of uninvolved nail plate on that left fourth finger. This is unchanged from her last visit. Assessment plan: Rosacea facial 1. Patient with negative RUSSELL and nonspecific punch biopsy 2. Responding well to metronidazole 0.75% gel apply on a once daily basis to affected areas patientwas given 45 g with 3 refills in August continue this Tinea unguium left fourth fingernail/paronychia, stable currently 1. Begin again the use of thymol 3% in ethyl alcohol applying on a twice daily basis to underneath that affected fourth fingernail. Dispense 30 g with 2 refills 2. Discussed how it would take an additional 3 to 4 months to see improvement following the 3-monthcourse of terbinafine completed in August 3. Return to clinic as needed. CC: Galina Lowe APRN documented in this encounter Plan of Treatment Not on file documented as of this encounter Visit Diagnoses Diagnosis Rosacea Paronychia of finger of left hand Tinea unguium Dermatophytosis of nail documented in this encounter Care Teams Health And Safety Tech Relationship Specialty Start Date End Date Galina Lowe APRN [address] [place] [address] PCP - General Family Medicine 07/11/20 documented as of this encounter
--- OUTSIDE RECORDS SUMMARY | 2024-02-19 22:12 | XMS_ITS | Encounter Summary ---
[place] [address] Care Team Providers Care Records Clerk Name Role Phone Galina Lowe APRN Primary Care Provider Reason for Visit * Reason Comments Follow-up Encounter Details Date Type Department Care Team (Late st Contact Info) Description 09/02/2021 8:30 AM EDT Office Visit Dermatology at [address] [id number] Glenroy Henry MD [address] [facility] [place] [address] Rosacea Social History Tobacco Use Types Packs/Day Years Used Date Smoking Tobacco: Never Smokeless Tobacco: Never Sex and Gender Information Value Date Recorded Sex Assigned at Not on file Gender Identity Not on file Sexual Orientation Not on file documented as of this encounter Progress Notes * Glenroy Henry MD - 09/02/2021 8:30 AM EDT Problem: 1. ??Chronic paronychia/tinea unguium left fourth finger 2. ??Facial dermatitis since at least December ?? Jenny follows up for a 3-month check. Jenny states that she has had 2 episodes of her facial dermatitissince I saw her last. Once was when she was in an airport most of the day because of the delayed flight in the winter, and once was when she was driving to [place] and facing this the sun. Both times she noted redness, itching burning in a malar facial distribution.. She used her hydrocortisone cream 2.5% and within 18 to 24 hours the rash was gone. She is also taking the 3 months worth of theterbinafine and tolerating this well. Physical examination reveals ongoing subungual hyperkeratotic debris of the left fourth fingernail with at its narrowest point a 4 mm band of normal nail plate. The involved area involves the distal nail and the diagonal shape. Facial examination is unremarkable without any dermatitis redness. She has no papules pustules. She does not have any significant telangiectasia formation. Assessment plan: Intermittent facial erythema burning stinging 1. Patient with negative RUSSELL, and punch biopsy affected area was nonspecific, albeit there were eosinophils present. 2. We will treat as likely rosacea. Begin metronidazole 0.75% gel apply on a once daily basis to face in the evenings after washing. Dispense 45 g with 3 refills 3. Return to clinic in 3 months for repeat check Tinea unguium left fourth fingernail 1. Complete any remaining terbinafine. 2. Discussed now the need to wait for 5 months to see improvement/resolution of the involved nail plate 3. Reassess in 3 months when she returns for reassessment of her rosacea CC: Galina Lowe APRN documented in this encounter Plan of Treatment Not on file documented as of this encounter Visit Diagnoses Diagnosis Rosacea documented in this encounter Care Teams Records Clerk Relationship Specialty Start Date End Date Galina Lowe APRN [facility] [address] [facility] [address] [place] [address] PCP - General Family Medicine 07/11/20 documented as of this encounter
--- OUTSIDE RECORDS SUMMARY | 2024-02-19 22:12 | XMS_ITS | Encounter Summary ---
Author Organization Formerly [facility] Address [facility] [place] [address] Care Team Providers Care Hospice Clinical Manager Name Role Phone Galina Lowe APRN Primary Care Provider Encounter Details Date Type Department Care Team (Late st Contact Info) Description 05/20/2021 4:15 PM EST Office Visit Dermatology at [address] [place] [address] Glenroy Henry MD [address] [facility] DERMATOLOGY [place], [place] [id number] Paronychia of finger of left hand; Tinea unguium; Dermatitis Social History Tobacco Use Types Packs/Day Years Used Date Smoking Tobacco: Never Smokeless Tobacco: Never Sex and Gender Information Value Date Recorded Sex Assigned at Not on file Gender Identity Not on file Sexual Orientation Not on file documented as of this encounter Progress Notes * Glenroy Henry MD - 05/20/2021 4:15 PM EST Problem: 1. Chronic paronychia/tinea unguium left fourth finger 2. Facial dermatitis since at least December Jenny follows up after last seeing me in June. She tried to thymol but unfortunately was unable toclear her fingernail. Since December she has had problems with a red malar dermatitis with overlying scaling that does not seem to follow any particular pattern. Can be at work it can be when she is awayfrom work. Can be during more so many times of the year as it was in December, but also in April it flared. She is referred today in consultation by AISHWARYA Altman treatments to date have included metronidazole 0.75% and triamcinolone 0.025% cream. She is using numerous emollients and [id number] creams as well. She was given a short course of prednisone. 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 Physical examination reveals a malar dermatitis with erythema and scaling over the bridge of her nose extending down today just involving the nose, however photographs on her cell phone demonstrate extension onto the malar cheeks even onto the ears and on the lateral face as well. She's not had dermatitis elsewhere. She denies any involvement on the arms or legs. Assessment plan: Malar dermatitis 1. 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 Today punch biopsy obtained from right nasal sidewall considered pathologic analysis 3. Today checked serologies for CBC and RUSSELL with reflex JOANNA. 4. Return to clinic in 1 week for suture movable and biopsy results. No new treatments given today Tinea unguium/paronychia left fourth finger 1. Discussed the option of an oral course of terbinafine which we will hold off on for right now. CC: FRANNY Rea PA documented in this encounter Plan of Treatment Not on file documented as of this encounter Visit Diagnoses Diagnosis Paronychia of finger of left hand Tinea unguium Dermatophytosis of nail Dermatitis Contact dermatitis and other eczema, due to unspecified cause documented in this encounter Care Teams Hospice Clinical Manager Relationship Specialty Start Date End Date Galina Lowe APRN [address] [place] [address] PCP - General Family Medicine 07/11/20 documented as of this encounter
--- OUTSIDE RECORDS SUMMARY | 2024-02-19 22:12 | XMS_ITS | Encounter Summary ---
Author Organization Counts Include [facility] Address [facility] [place] [address] Care Team Providers Care Practice Or Student Teacher Name Role Phone Galina Lowe APRN Primary Care Provider [phone] Encounter Details Date Type Department Care Team (Latest Contact Info) Description 07/06/2023 2:15 PM EST Clinical Support Dermatology at [facility] [address] [place] [address] Dago Prieto MD [facility] [address] [place] [address] Neoplasm of uncertain behavior Social History Tobacco Use Types Packs/Day Years Used Date Smoking Tobacco: Never Smokeless Tobacco: Never Sex and Gender Information Value Date Recorded Sex Assigned at Not on file Gender Identity Not on file Sexual Orientation Not on file documented as of this encounter Progress Notes * Kiana Crystal LPN - 07/06/2023 2:15 PM EST Patient Name: Romy Bhakta Age: 58 y.o. Date of : 1965 Today's Date: 07/06/2023 REFERRING PROVIDER: No ref. provider found HPI: Romy Bhakta is a 58 y.o. female presenting for excisional biopsy location on the 4th finger of left hand. The dermatologic preoperative information sheet was reviewed with pertinent positive and negative as below. DERMATOLOGIC PRE-OPERATIVE EVALUATION AND REVIEW OF SYSTEMS Pacemaker/Defibrillator? no Joint replacement or other implantable devices (e.g. Cochlear implant)? If yes then when? no Do you take a blood thinner? No History of artificial valve or stroke? no History of liver disease or bleeding disorder? no Do you have any medical problems that may affect your upcoming surgery? yes Epilepsy ALLERGIES: Allergies reviewed MEDICATIONS: Medications reviewed Signed: Kiana Crystal LPN documented in this encounter Plan of Treatment Not on file documented as of this encounter Visit Diagnoses Diagnosis Neoplasm of uncertain behavior Neoplasm of uncertain behavior, site unspecified documented in this encounter Care Teams Practice Or Student Teacher Relationship Specialty Start Date End Date Galina Lowe APRN [address] [place] [address] PCP - General Family Medicine 07/11/20 documented as of this encounter
--- OUTSIDE RECORDS SUMMARY | 2024-02-19 22:12 | XMS_ITS | Encounter Summary ---
Author Organization [facility] [place] [address] Care Team Providers Care Fuel Cell Binder Name Role Phone Galina Lowe APRN Primary Care Provider Encounter Details Date Type Department Care Team (Late st Contact Info) Description 06/16/2023 Telephone Dermatology at [address] [phone] Nhi Grewal LPN Social History Tobacco Use Types Packs/Day Years Used Date Smoking Tobacco: Never Smokeless Tobacco: Never Sex and Gender Information Value Date Recorded Sex Assigned at Not on file Gender Identity Not on file Sexual Orientation Not on file documented as of this encounter Miscellaneous Notes * Telephone Encounter - Nhi Grewal LPN - 06/16/2023 2:[address] Henry received results from the x-ray patient had done yesterday. Normal no bony defects. Dr. Henry has contacted Dr. Prieto at [facility]. Dr. Prieto recommends a biopsy under the nail bed. Reviewed results from x-ray and Dr. Prieto's recommendation with patient. She voiced DR. Prieto'soffice has contacted her and she has an appointment July 06 in his office at [facility]. documented in this encounter Plan of Treatment Not on file documented as of this encounter Visit Diagnoses Not on filedocumented in this encounter Care Teams Fuel Cell Binder Relationship Specialty Start Date End Date Galina Lowe FRANNY [address] [facility] [facility] [address] [place] [address] PCP - General Family Medicine 07/11/20 documented as of this encounter
--- OUTSIDE RECORDS SUMMARY | 2024-02-19 22:12 | XMS_ITS | Encounter Summary ---
Author Organization [facility] Address [facility] [place] [address] Care Team Providers Care Forensic Sergeant Name Role Phone Mynor Galina BLANTON Primary Care Provider [phone] Encounter Details Date Type Department Care Team (Late st Contact Info) Description 07/13/2023 Telephone Dermatology at [facility] [address] [place] [address] Dago Prieto MD [facility] [address] [place] [address] Social History Tobacco Use Types Packs/Day Years Used Date Smoking Tobacco: Never Smokeless Tobacco: Never Sex and Gender Information Value Date Recorded Sex Assigned at Not on file Gender Identity Not on file Sexual Orientation Not on file documented as of this encounter Miscellaneous Notes * Telephone Encounter - Dago Prieto MD - 07/13/2023 4:04 PM EST Attempted to call patient with biopsy results, no answer, mailbox full. We will try back at a laterdate. Dago Prieto MD PhD [facility] Dermat[facility] On[facility] Department of Dermatology documented in this encounter Plan of Treatment Not on file documented as of this encounter Visit Diagnoses Not on filedocumented in this encounter Care Teams Forensic Sergeant Relationship Specialty Start Date End Date Galina Lowe, FRANNY [address] [place] [address] PCP - General Family Medicine 07/11/20 documented as of this encounter
--- OUTSIDE RECORDS SUMMARY | 2024-02-19 22:12 | XMS_ITS | Encounter Summary ---
Author Organization [facility] Address [facility] [place] [address] Care Team Providers Care Fountain Brush Assembler Name Role Phone Galina Lowe APRN Primary Care Provider Encounter Details Date Type Department Care Team (Late st Contact Info) Description 05/27/2021 4:30 PM EST Office Visit Dermatology at [address] [place] [address] Glenroy Henry MD [address] [facility] DERMATOLOGY [place], [place] [id number] Paronychia of finger of left hand; Tinea unguium; Dermatitis Social History Tobacco Use Types Packs/Day Years Used Date Smoking Tobacco: Never Smokeless Tobacco: Never Sex and Gender Information Value Date Recorded Sex Assigned at Not on file Gender Identity Not on file Sexual Orientation Not on file documented as of this encounter Progress Notes * Glenroy Henry MD - 05/27/2021 4:30 PM EST Problem: 1. Chronic paronychia/tinea unguium left fourth finger 2. Facial dermatitis since at least December Jenny follows up today for suture removal and biopsy results. Unfortunately biopsy results from the right nasal sidewall are not yet back from [facility]. She has had good healing of the healing of the punchbiopsy site. I relayed to her that the lab testing came back showing a negative RUSSELL and a an essentially normal CBC. She is here today with her friend Amy Physical exam reveals a pleasant 56-year-old woman who has good healing of the punch biopsy site onthe right nasal sidewall. She is some irritation from the Shar bandage tape but otherwise no signof infection. She does continue to have tinea unguium present of the left fourth fingernail which did not respond to thymol 3% in ethyl alcohol. Assessment plan: Awaiting punch biopsy results from right nasal sidewall 1. Still suspect given the malar dermatitis history but this is represents discoid lupus, now with known normal CBC and negative RUSSELL 2. Suture removed 3. Await punch biopsy results from [facility] 4. Discussed today the importance of sun avoidance precautions in general but certainly if she is diagnosed with DLE the importance of using sunscreen wearing a broad brimmed hat etc. 5. We will notify with results when these are available and likely provide her with a corticosteroid cream to use as needed. Tinea unguium left fourth fingernail 1. Begin terbinafine 250 mg 1 p.o. daily on a full stomach for 3 months dispense 30 with 2 refills.Prescription will be called into her [facility] in [place]. 2. Patient understands that she will not then need to wait 5 months to see the full benefit of this 3. I have asked the patient abstain from alcohol while on this medication for this first 3 months. CC: Galina Lowe APRN documented in this encounter Plan of Treatment Not on file documented as of this encounter Visit Diagnoses Diagnosis Paronychia of finger of left hand Tinea unguium Dermatophytosis of nail Dermatitis Contact dermatitis and other eczema, due to unspecified cause documented in this encounter Care Teams Fountain Brush Assembler Relationship Specialty Start Date End Date Galina Lowe APRN [address] [place] [address] PCP - General Family Medicine 07/11/20 documented as of this encounter
--- NOTE | 2024-02-19 22:15 | RT.EKG_ITS ---
APPROVED REPORT Exam: Resting ECG Reason for Exam: unresponsive event Patient Location: E HR:77 bpm ECG Measurements Heart Rate 77 AXIS MO 163 P 57 QRSd 108 QRS 33 QT 390 T 46 QTc 440 Conclusion Sinus rhythm...normal P axis, V-rate 60- 99 Normal Innis Normal Electrocardiogram
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
[2024-02-19 22:46] LABS: Abs Immature Grans 0.04 10^3/uL (0.0-0.06); Absolute Basophil Count 0.05 10^3/uL (0.0-0.2); Absolute Eosinophil Count 0.14 10^3/uL (0.0-0.7); Absolute Lymphocyte Count 2.29 10^3/uL (1.2-3.4); Absolute Monocyte Count 0.45 10^3/uL (0.1-0.8); Absolute Neutrophil Count 7.42 10^3/uL (1.2-6.7); Basophils % 0.5 %; Eosinophils % 1.3 %; HCT 39.6 % (36.0-46.0); HGB 13.1 g/dL (11.2-15.7); Immature Grans % 0.4 %; MCH 32.3 pg (27.0-33.0); MCHC 33.1 % (32.0-36.0); MCV 98 fL (80-95); MPV 9.4 fL (8.0-11.0); Monocytes % 4.3 %; Neutrophils % 71.5 %; Platelet Count 228 10^3/uL (130-400); RBC 4.05 10^6/uL (3.93-5.22); RDW 12.6 % (11.7-14.6); RDW-SD 45.3 fL; WBC 10.39 10^3/uL (4.4-10.8)
[2024-02-19 23:02] LABS: ALT 17 U/L (14-59); AST 14 U/L (15-37); Albumin 3.9 g/dL (3.4-5.0); Alkaline Phosphatase 61 U/L (46-116); Anion Gap 11.2 mmol/L (3-11); BUN 11 mg/dL (7-18); Bilirubin, Total 0.24 mg/dL (0.2-1.0); CO2 24.8 mmol/L (21.0-32.0); CREATININE 0.7 mg/dL (0.55-1.02); Chloride 100 mmol/L (98-107); ETHANOL BLOOD 134.7 mg/dL (<10); Estimated GFR 100.19 (mL/min/1.73m2); Glucose 104 mg/dL (74-106); Potassium 3.4 mmol/L (3.5-5.1); Sodium 136 mmol/L (136-145); Total Protein 6.9 g/dL (6.4-8.2)
--- NOTE | 2024-02-19 23:02 | DI.RAD_ITS ---
Exam(s) XR WRIST LT COMPLETE EXAM: XR WRIST LT COMPLETE CLINICAL HISTORY: trauma, fall w injury. TECHNIQUE: 2D digital imaging was performed of the left wrist. Three images were obtained. PA, obl ique and lateral views were obtained. COMPARISON: No exams were available for comparison FINDINGS: BONES: There is a nondisplaced small fracture of the tip of the ulnar styloid process. There is also question of a nondisplaced fracture involving the distal metaphysis of the left radius, best appreci ated on the lateral view. No bony destructive lesion is seen. JOINTS: The carpal bones are normally aligned. Degenerative changes are seen at the 1st CMC joint. SOFT TISSUE: Normal. IMPRESSION: Nondisplaced fractures involving the distal metaphysis of the left radius in the tip of the ulnar sty loid process. DATA REPOSITORY: RADIATION DOSE DELIVERED:
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
--- NOTE | 2024-02-19 23:13 | DI.VRAD_ITS ---
PROCEDURE INFORMATION: Exam: XR Left Wrist Exam date and time: 02/19/2024 10:56 PM Age: 58 years old Clinical indication: Other: Trauma, fall w injury TECHNIQUE: Imaging protocol: Radiologic exam of the left wrist. Views: 3 or more views. COMPARISON: No relevant prior studies available. FINDINGS: Bones/joints: Minimally displaced transverse fracture suspected involving the distal left radial metaphysis with associated lucency best visualized on the lateral view. Tiny minimally displaced avulsion fracture also involves the tip of the ulnar styloid process. There is arthrosis at the thumb carpometacarpal articulation and no other acute fractures are detected. Soft tissues: Soft tissue swelling is most prominent along the volar aspect of the distal left forearm with anterior displacement and bowing of the pronator fat pad. IMPRESSION: Minimally displaced transverse fracture suspected involving the distal left radial metaphysis with associated lucency best visualized on the lateral view. Tiny minimally displaced avulsion fracture also involves the tip of the ulnar styloid process. Soft tissue swelling is most prominent along the volar aspect of the distal left forearm with anterior displacement and bowing of the pronator fat pad. Dictated and Authenticated by: Hood Villasenor MD. Ordering:WILMA Agee MD
[2024-02-19] MEDS: ACETAMINOPHEN 1,000 MG/100 ML BTL 400 MG (23:24)
[2024-02-20] VITALS (7 sets, daily range): BP systolic 98; BP diastolic 62; PULSE 78–88; RESP 14–22; TEMP 36.7; O2SAT 96
== END 2024-02-20 01:03 | disposition home or self-care (01) ==
PROVIDERS: Emergency Provider Emergency Medicine; PCP Nurse Practitioner Family
DX: S52.502A Unspecified fracture of the lower end of left radius, initial encounter for closed fracture (principal); S52.612A Displaced fracture of left ulna styloid process, initial encounter for closed fracture; R55 Syncope and collapse; W19.XXXA Unspecified fall, initial encounter
CPT/HCPCS: 25600; 36415; 80053; 93005; 96365; 99284; 70450; 73110; 80320; 83735; 85025; 93010; 99283; J0131; J1953

== ENCOUNTER 2024-03-06 14:46 | Outpatient (CLI) | payer BC, SELFPAY ==
--- NOTE | 2024-03-06 14:30 | DI.RAD_ITS ---
Exam(s) XR WRIST LT LIMITED EXAM: XR WRIST LT LIMITED CLINICAL HISTORY: F/U DISTAL RAD FX. TECHNIQUE: 2D digital imaging was performed of the left wrist. Two images were obtained. PA and la teral views were obtained. COMPARISON: CR,XR XR WRIST LT COMPLETE from 02/19/2024 FINDINGS: BONES: There is slight increased impaction of the distal left radial fracture. The ulnar styloid pro cess fracture at the tip is less well visualized due to patient positioning. No bony destructive les ion is seen. No new fractures identified. JOINTS: The carpal bones are normally aligned. There are degenerative changes seen at the 1st CMC anaya nt. SOFT TISSUE: Soft tissue swelling of the wrist. IMPRESSION: On the lateral view there appears to be very mild increased impaction of the distal left radial fract ure compared to the initial examination. DATA REPOSITORY: RADIATION DOSE DELIVERED:
== END 2024-03-06 14:47 | disposition home or self-care (01) ==
LOC: DIORS 14:46
PROVIDERS: PCP Family Medicine; Referring Provider Family Medicine; Visit Provider Physician Assistant
DX: S52.612D Displaced fracture of left ulna styloid process, subsequent encounter for closed fracture with routine healing (principal); X58.XXXD Exposure to other specified factors, subsequent encounter
CPT/HCPCS: 73100

== ENCOUNTER 2024-03-23 09:54 | Outpatient (RCR) | payer BC, SELFPAY ==
--- NOTE | 2024-03-23 10:15 | HOLTER_ITS ---
APPROVED REPORT Conclusion This is a 48-hour Holter monitor Rhythm throughout was sinus with an average heart rate of 69. Minimum was 50, maximum 113 There was 1 premature ventricular contraction There were 13 atrial premature beats There was no atrial fibrillation, no high-grade AV block, no pauses greater than 3 seconds
== END 2024-04-13 23:59 | disposition home or self-care (01) ==
LOC: CARDOPNVT 09:54
PROVIDERS: PCP Family Medicine; Visit Provider Internal Medicine Cardiovascular Disease
DX: I49.1 Atrial premature depolarization (principal); R56.9 Unspecified convulsions
CPT/HCPCS: 93225; 93226

== ENCOUNTER 2024-04-06 01:41 | Outpatient (CLI) | payer BC, SELFPAY ==
--- NOTE | 2024-04-06 07:00 | DI.MRI_ITS ---
Exam(s) MR BRAIN WO EXAM: MR BRAIN WO CLINICAL HISTORY: seizures,R56.9 TECHNIQUE: Multiplanar multisequence MRI of the brain was performed. COMPARISON: CT CT HEAD WO from 02/19/2024 FINDINGS: CEREBRAL PARENCHYMA: There is no evidence of intracranial hemorrhage, mass effect, or shift of midline structures. There are no extra-axial fluid collections. Ventricles are not enlarged or shifted. There is no significant focal signal abnormality in the cerebellar hemispheres nor within the kam, m idbrain, and thalami. There is no abnormal signal abnormality in the periventricular white matter. There is no significant focal signal abnormality evident on diffusion imaging to suggest acute ischem ic event. PITUITARY GLAND: No mass nor parasellar abnormality. No obvious abnormality in the cavernous sinuses. FLOW VOIDS: The expected flow void are noted. No evidence of obvious aneurysm nor obvious vascular ma lformation. PARANASAL SINUSES: The visualized paranasal sinuses appear unremarkable. No obvious finding ORBITS: No obvious findings. IMPRESSION: No significant intracranial findings on this noninfused MRI scan of the brain. DATA REPOSITORY:
== END 2024-04-06 02:01 ==
LOC: DI 01:41
PROVIDERS: PCP Family Medicine; Visit Provider Psychiatry & Neurology Neurology
DX: R56.9 Unspecified convulsions (principal)
CPT/HCPCS: 70551

== ENCOUNTER 2024-04-06 14:56 | Outpatient (CLI) | payer BC, SELFPAY ==
--- NOTE | 2024-04-06 14:02 | DI.RAD_ITS ---
Exam(s) XR WRIST LT LIMITED EXAM: XR WRIST LT LIMITED CLINICAL HISTORY: F/U L DISTAL RAD FX. TECHNIQUE: 2D digital imaging was performed of the left wrist. Two images were obtained. PA and la teral views were obtained. COMPARISON: CR,XR XR WRIST LT COMPLETE from 02/19/2024 CR XR WRIST LT LIMITED from 03/06/2024 FINDINGS: BONES: There is a mildly displaced ulnar styloid process fracture at the tip. This was present on th e prior examination. There is been no change in alignment of the fracture through the distal metaphy sis of the radius. Increased callus formation is seen about the fracture suggesting some interval he aling. The fracture line is still partially visualized. No bony destructive lesion is seen. JOINTS: The carpal bones are normally aligned. SOFT TISSUE: Normal. IMPRESSION: Stable alignment of the distal left radial fracture. Mildly displaced ulnar styloid process fracture as described. DATA REPOSITORY: RADIATION DOSE DELIVERED:
== END 2024-04-06 14:57 | disposition home or self-care (01) ==
LOC: DIORS 14:56
PROVIDERS: PCP Family Medicine; Visit Provider Student in an Organized Health Care Education/Training Program
DX: S52.612D Displaced fracture of left ulna styloid process, subsequent encounter for closed fracture with routine healing (principal); X58.XXXD Exposure to other specified factors, subsequent encounter
CPT/HCPCS: 73100

== ENCOUNTER 2025-01-08 13:19 | Emergency (ER) | payer BC, SELFPAY ==
[2025-01-08 13:21] VITALS: BP 124/81; PULSE 69; RESP 16; TEMP 36.6; O2SAT 95
[2025-01-08 13:27] VITALS: BP 124/81; PULSE 69; RESP 16; TEMP 36.6; O2SAT 95
--- NOTE | 2025-01-08 13:30 | DI.RAD_ITS ---
Exam(s) XR CHEST 2V PA LATERAL EXAM: XR CHEST 2V PA LATERAL CLINICAL HISTORY: cough TECHNIQUE: 2D digital imaging was performed. Two views. COMPARISON: No exams were available for comparison FINDINGS: HEART: Normal size. Aorta: Not dilated. PULMONARY VASCULATURE: Normal. MEDIASTINUM: Unremarkable. LUNGS: Minimal basilar and apical scarring, otherwise clear. PLEURAL SPACE: No pleural effusion or pneumothorax. BONE:Unremarkable for age. SOFT TISSUES: Unremarkable. IMPRESSION: No acute abnormality. DATA REPOSITORY: RADIATION DOSE DELIVERED:
--- NOTE | 2025-01-08 13:35 | W.ED.GENAD ---
Discharge Plan Disposition Patient Disposition: Home Condition: Stable Discharge Details Clinical Impression: Cough Primary Care Provider: Sherry Cherry ED Provider: Xavier Lee Home Meds and New Rx's Prescriptions: New prednisone 20 mg tablet See Rx Instructions .ROUTE .COMPLEX Qty: 19 0RF Rx Instructions: Take 60 mg daily for 3 days, then 40 mg daily for 3 days, then 20 mg daily for 4 days. Continued levetiracetam 500 mg tablet 500 mg PO BID Qty: 180 3RF albuterol sulfate 90 mcg/actuation HFA aerosol inhaler 2 inh inhalation Q6H PRN (Reason: shortness of breath or wheezing) Qty: 18 4RF ferrous sulfate [Feosol] 325 mg (65 mg iron) tablet 325 mg PO DAILY Discontinued azithromycin 250 mg tablet See Rx Instructions PO .COMPLEX Qty: 6 0RF Rx Instructions: For 250 mg dose pack: take 500 mg today (day 1), then 250 mg for 4 days (days 2-5) PO Discharge Instructions Additional Instructions: Your x-ray did not show any concerning findings at this time. I am placing you on prednisone for a longer course nad you will taper down. If symptoms are continuing follow-up with primary care provider a week. if you feel more ill or have worsening shortness of breath return to the emergency department for reevaluation. HPI General Mode of arrival: ambulatory. Date/Time Provider Initiated Documentation: 01/08/25 13:21. Limitations to Documentation: no limitations. Information obtained by: patient. History of Present Illness 59 year old F presents to the emergency department with the chief complaint of cough, described as moderate, Patient started experiencing this week(s) (3) and it has been constant. No relieving factors improve symptom(s), No exacerbating factors reported . Patient notes denies chest pain, fever/chills and nausea/vomiting. Related Data Home Medications ?Medication ?Instructions ?Recorded ?Confirmed ferrous sulfate 325 mg (65 mg 325 mg PO DAILY 03/03/24 01/08/25 iron) tablet (Feosol) levetiracetam 500 mg tablet 500 mg PO BID #180 tabs 05/08/24 01/08/25 albuterol sulfate 90 mcg/actuation 2 inh inhalation Q6H PRN shortness 01/02/25 01/08/25 aerosol inhaler of breath or wheezing #18 grams prednisone 20 mg tablet See Rx Instructions .Route 01/08/25 .COMPLEX #19 tabs Previous Rx's ?Medication ?Instructions ?Recorded levetiracetam 500 mg tablet 500 mg PO BID #180 tabs 05/08/24 albuterol sulfate 90 mcg/actuation 2 inh inhalation Q6H PRN shortness 01/02/25 aerosol inhaler of breath or wheezing #18 grams prednisone 20 mg tablet See Rx Instructions .Route 01/08/25 .COMPLEX #19 tabs Allergies Allergy/AdvReac Type Severity Reaction Status Date / Time No Known Allergies Allergy Verified 01/08/25 13:25 General Stated Complaint: RespSymp ZEUS: 4 Review of Systems All systems reviewed & are unremarkable except as noted in HPI and below Constitutional Constitutional: Denies chills, Denies fever(s) and Denies weakness Cardiovascular Cardiovascular: Denies chest pain Respiratory Respiratory: Reports cough Gastrointestinal Gastrointestinal: Denies abdominal pain, Denies nausea and Denies vomiting Neurologic Neurologic: Denies weakness Exam Const General: no acute distress Orientation: alert HENNJ Head: normal to inspection Ears: external ears normal General nose exam: external nose normal Mouth: moist mucous membranes Eyes General: appearance normal, both eyes and all related structures Neck Neck: normal visual inspection Resp Effort & Inspection: normal respiratory effort and able to speak in complete sentences Auscultation: rhonchi and wheezes Cardio Jugular venous pressure: no JVD Rate: regular rate Skin General skin exam: no rashes or lesions noted Neuro General: patient alert and patient oriented x3 Extrem General: normal to inspection Psych Mental Status: mental status grossly normal Course Vital Signs Vital signs: Vital Signs Temperature 36.6 C 01/08/25 13:21 Pulse 69 01/08/25 13:21 Respiratory Rate 16 01/08/25 13:21 Blood Pressure 124/81 01/08/25 13:21 Pulse Oximetry 95 01/08/25 13:21 Temperature 36.6 C 01/08/25 13:27 Temperature Source Oral 01/08/25 13:27 Pulse 69 01/08/25 13:27 Respiratory Rate 16 01/08/25 13:27 Blood Pressure 124/81 01/08/25 13:27 Blood Pressure Position Sitting 01/08/25 13:27 Pulse Oximetry 95 01/08/25 13:27 Oxygen Delivery Method Room Air 01/08/25 13:27 Oxygen Flow Rate 0 01/08/25 13:27 Pain Level 6 01/08/25 13:27 Medical Decision Making 59-year-old female who states she is a history of asthma smoker comes in with 3 weeks of intermittently productive cough. She states that she has Anxious on all testing otherwise does not have any difficulty breathing. She was put on prednisone last week as well as azithromycin which helped her symptoms her last dose was Wednesday and had recurrent symptoms starting Wednesday. She denies any recent international travel, no fevers or chills, no chest pain. She is speaking full sentences. She has apical wheezing bilaterally and rhonchi at the bases bilaterally. No JVD is excellent. I suspect URI with an asthma exacerbation versus possibly having COPD. Will treat with prednisone and DuoNeb and obtain chest x-ray to evaluate for infiltrates. Patient feels better and lung sounds are now clear. X-ray negative. Do not feel more antibiotics are indicated. I will put on a prednisone taper. She will follow-up with PCP if improving and return precautions given Differential Diagnosis Differential Diagnosis: URI, asthma [facility] All Active Problems (Updated 01/08/25 @ 14:30 by Xavier Lee MD) Cough (Acute) Respiratory illness (Acute) Closed fracture of distal end of left radius (Acute 02/19/24) Epileptic drop attack (Acute) Seizure (Acute) Medical History Asthma Surgical History S/P ovarian cystectomy Colonoscopy - IV Sedation (08/14/16) Family History Mother Breast cancer Macular degeneration Father Personal history of malignant neoplasm bladder Brother , 30; reports a rare arterial problem Heart disease Grandfather Heart disease Social History Smoking/Tobacco Use Status: Current every day Tobacco Type: cigarettes Years smoked: 3 Smoking risk assessment performed?: Yes Alcohol Intake: current Alcohol Intake frequency: a few times a month Alcohol type: beer Drug use: Never Substance use type: does not use Housing: house 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 Duration: 30-45 minutes/day Frequency: 3-4 times per week Do you feel safe at home: Yes Do you feel safe in your relationship?: Yes
[2025-01-08 13:42] VITALS: PULSE 67; RESP 20; O2SAT 97
[2025-01-08] MEDS: Albuterol/Ipratropium 3 ML UPD VIAL UPD (13:42)
[2025-01-08] MEDS: predniSONE 20 MG TAB 60 MG PO (13:42)
== END 2025-01-08 14:55 | disposition home or self-care (01) ==
PROVIDERS: Emergency Provider Emergency Medicine; PCP Family Medicine
DX: R05.9 Cough, unspecified (principal); J45.909 Unspecified asthma, uncomplicated; F17.210 Nicotine dependence, cigarettes, uncomplicated
CPT/HCPCS: 94640; 99283; 71046; J7512; J7620

== ENCOUNTER 2025-02-21 02:40 | Outpatient (CLI) | payer BC, SELFPAY ==
--- NOTE | 2025-02-21 06:30 | DI.MAMMO_ITS ---
Exam(s) MAMMO SCREENING EXAM: MAMMO SCREENING CLINICAL HISTORY: screening,Z12.39. TECHNIQUE: Bilateral full field digital CC and MLO mammographic images were obtained with 3D tomosynthesis and utilizing computer aided detection (CAD). COMPARISON: Prior mammograms were reviewed. Prior ultrasounds reviewed FINDINGS: No new right breast findings In the left breast on the CC view there is suggestion of a new small 3 mm nodule located 4 cm in from the nipple. Spot compression view recommended. There are no malignant-appearing microcalcification groups is region or elsewhere in either breast. There is no significant architectural distortion nor skin thickening-retraction. IMPRESSION: 1. No radiographic evidence of malignancy in the right breast. 2. 3 mm nodule in the left breast. Spot compression CC view and breast ultrasound recommended. BI-RADS Category 0 - Incomplete: Need additional imaging evaluation Breast Density - Category C - The breast are heterogeneously dense, which may obscure small masses. Breast density Category C or D implies that the patient has dense breast tissue. Dense breast tissue can make it harder to find cancer on a mammogram. Dense breast tissue is also associated with an increased risk of breast cancer. This information about the result of the mammogram report was provided to the patient to raise their awareness. Use this report when you speak with the patient about their risks for breast cancer, which includes their family history. At that time, you may recommend additional screening tests (Ultrasound or MRI) as these tests may add significant information. A negative radiographic report should not delay biopsy if a dominant or clinically suspicious mass is present. Up to ten percent of cancers are not identified on mammography. A negative report may reinforce clinical impression. Adenosis and dense breasts may obscure an underlying neoplasm. False positive reports average 6 to 10%. Patient will receive a letter notifying them of these results.
== END 2025-02-21 03:00 ==
LOC: DI 02:40
PROVIDERS: PCP Family Medicine; Visit Provider Family Medicine
DX: Z12.31 Encounter for screening mammogram for malignant neoplasm of breast (principal)
CPT/HCPCS: 77063; 77067

== ENCOUNTER 2025-03-01 04:10 | Outpatient (CLI) | payer BC, SELFPAY ==
--- NOTE | 2025-03-01 | DI.MAMMO_ITS ---
Exam(s) MG MAMMO SCREEN CALL BACK UNI EXAM: MAMMO SCREEN CALL BACK UNI CLINICAL HISTORY: 3 MM NODULE LEFT BREAST R92.8 ABNL MAMMO. TECHNIQUE: Craniocaudal and mediolateral oblique Full Field Digital Mammography views of the left breast with Computer Aided Diagnosis. COMPARISON: Comparison is made with prior examinations. FINDINGS: Mammography/Tomosynthesis: Masses/Architectural Distortion: The area of concern does not persist on the additional views. There are no suspicious masses or areas of architectural distortion present. Microcalcifictions: No suspicious pleomorphic-type are seen. Skin Thickening/Nipple Retraction: None. IMPRESSION: 1. No evidence of malignancy is noted. 2. Unless there is more urgent need, follow-up screening mammography is recommended, as per [place] [employer] guidelines. 3. The findings were discussed with the patient on the date of the examination. BI-RADS Category 1 - Negative Breast Density - Category C - The breast are heterogeneously dense, which may obscure small masses. Breast density Category C or D implies that the patient has dense breast tissue. Dense breast tissue can make it harder to find cancer on a mammogram. Dense breast tissue is also associated with an increased risk of breast cancer. This information about the result of the mammogram report was provided to the patient to raise their awareness. Use this report when you speak with the patient about their risks for breast cancer, which includes their family history. At that time, you may recommend additional screening tests (Ultrasound or MRI) as these tests may add significant information. A negative radiographic report should not delay biopsy if a dominant or clinically suspicious mass is present. Up to ten percent of cancers are not identified on mammography. A negative report may reinforce clinical impression. Adenosis and dense breasts may obscure an underlying neoplasm. False positive reports average 6 to 10%. Patient will receive a letter notifying them of these results.
== END 2025-03-01 04:30 ==
LOC: DI 04:10
PROVIDERS: PCP Family Medicine; Visit Provider Family Medicine
DX: Z12.31 Encounter for screening mammogram for malignant neoplasm of breast (principal)
CPT/HCPCS: 77063; 77067

== ENCOUNTER 2025-05-23 00:41 | Outpatient (CLI) | payer BC, SELFPAY ==
[2025-05-23 07:57] LABS: Cholesterol 183 mg/dL (<200); HDL Cholesterol 74 mg/dL (>40)
[2025-05-23 18:34] LABS: HIV-1/2 Ag & Ab Screen Negative (Negative)
[2025-05-23 18:43] LABS: Hepatitis C Ab w Rflx HCV PCR Negative (Negative)
== END 2025-05-23 00:42 | disposition home or self-care (01) ==
LOC: LBO 00:41
PROVIDERS: PCP Family Medicine; Visit Provider Family Medicine
DX: Z11.59 Encounter for screening for other viral diseases (principal); Z11.4 Encounter for screening for human immunodeficiency virus [HIV]; Z13.6 Encounter for screening for cardiovascular disorders
CPT/HCPCS: 36415; 80061; 86803; 87389